=== PATIENT | female | born 1950 | race Caucasian/White ===

== ENCOUNTER → 2020-04-20 08:51 | Outpatient (BNVA) | payer MEDICARE, MEDICAID, SELFPAY | PROVIDERS: PCP Internal Medicine; Referring Provider Internal Medicine; Visit Provider Nurse Practitioner | DX: Z76.89 Persons encountering health services in other specified circumstances (principal) ==

== ENCOUNTER 2020-08-30 10:26 | Outpatient (REF) | payer MEDICARE, MEDICAID, SELFPAY ==
--- NOTE | ~2020-08-30 | US_ITS ---
EXAMINATION: US ABDOMEN COMPLETE CLINICAL INFORMATION: Unspecified abdominal pain. COMPARISON: Ultrasound abdomen 12/31/2017. TECHNIQUE: Real-time imaging of the abdominal viscera. FINDINGS: PANCREAS: Normal. ABDOMINAL AORTA: The proximal, mid, and distal segments are normal in caliber. INFERIOR VENA CAVA: Visualized portions are normal. LIVER: The liver is normal in size. The liver contour is normal. Parenchymal echogenicity is normal. There are 2 cysts measuring 2.2 x 2 x 1.8 cm and the left lobe and 1.8 x 1.4 x 2 cm in the right lobe. There is no intrahepatic biliary duct dilatation seen. GALLBLADDER: The gallbladder is physiologically distended. Multiple mobile gallstones are present. No evidence of gallbladder wall thickening or pericholecystic fluid. COMMON BILE DUCT: Normal in caliber measuring 0.4 cm in diameter. RIGHT KIDNEY: There is a 5 mm cyst in the upper pole. No hydronephrosis or renal calculi. The kidney measures 11.3 cm in maximum dimension. LEFT KIDNEY: Normal. No hydronephrosis. No renal calculi or focal parenchymal lesions. The kidney measures 9.9 cm in maximum dimension. SPLEEN: Normal. The spleen measures 6.7 cm in maximum dimension. FREE FLUID: None. US/US abdomen complete IMPRESSION: Gallstones. Liver and right renal cysts.
== END 2020-08-30 10:27 | disposition home or self-care (01) ==
LOC: HO.US 10:26
PROVIDERS: Visit Provider Internal Medicine
DX: R10.9 Unspecified abdominal pain (principal)
CPT/HCPCS: 76700

== ENCOUNTER 2020-12-06 11:06 | Outpatient (REF) | payer MEDICARE, MEDICAID, SELFPAY ==
--- NOTE | ~2020-12-06 | MM_ITS ---
EXAMINATION: MM SCREENING DIGITAL BREAST TOMOSYNTHESIS, BILATERAL CLINICAL INFORMATION: Screening. Asymptomatic. The lifetime risk of breast cancer based on the Tyrer-Cuzick Model is 3.2%. COMPARISON: Mammography: September 08, 2018 and studies dating back to March 07, 2012 TECHNIQUE: Digital breast tomosynthesis is performed in both the craniocaudal and mediolateral oblique views along with computer-aided detection (CAD). Synthesized 2D images are generated from the tomosynthesis. FINDINGS: There are scattered areas of fibroglandular density (ACR BI-RADS breast composition Category b). There are no significant masses, abnormal calcifications, or other abnormalities. MM/MM tomosynthesis screening BI IMPRESSION: There are no significant changes from prior study. ASSESSMENT: BI-RADS 1: Negative RECOMMENDATION: Routine annual mammography screening. This patient's information was entered into a reminder system with a target due date for their next mammogram.
--- NOTE | ~2020-12-06 | MM_ITS ---
EXAMINATION: BONE DENSITOMETRY CLINICAL INDICATION: Menopause. COMPARISON: None (current study represents initial baseline exam). TECHNIQUE: Using a Sanswire DXA System (software version: 13.1) manufactured by [employer], dual-energy x-ray absorptiometry was performed of the lumbar spine and left hip. The images are of good technical quality. Summary results are attached. FINDINGS: AP SPINE L1-L4: BMD 0.960 g/cm2, Z-score -0.2, T-score -1.8, osteopenia. LEFT FEMUR, NECK: BMD 0.614 g/cm2, Z-score -1.4, T-score -3.1, osteoporosis. LEFT FEMUR, TOTAL: BMD 0.687 g/cm2, Z-score -1.2, T-score -2.5, osteoporosis. IDENTIFIED RISK FACTORS: Menopause, osteoporosis, rheumatoid arthritis, history of fracture (adult), anticonvulsant. HISTORY OF FRACTURE: Pelvis. MEDICATIONS: Calcium, vitamin D. MM/XR DEXA axial skeleton IMPRESSION: 1. DIAGNOSIS: Osteoporosis based on the lowest T-score value of -3.1 in the femoral neck applying World Health Organization criteria. 2. 10-YEAR FRACTURE RISK PREDICTION, FRAX: Major osteoporotic fracture (clinical spine, forearm, hip or shoulder) 21.8%. Hip fracture 7.4%. 3. Treatment Recommendations: NOF guidelines recommend consideration for treatment in postmenopausal women and men age 50 and older presenting with the following: -A hip or vertebral (clinical or morphometric) fracture. -T-score less than or equal to -2.5 at the femoral neck or spine after appropriate evaluation to exclude secondary causes. -Low bone mass at the hip or spine and a 10-year fracture probability by FRAX of greater than or equal to 3% for hip fracture or greater than or equal to 20% for major osteoporotic fracture based on the [place] adapted WHO algorithm. 4. Other Recommendations: All treatment decisions require clinical judgment and consideration of individual patient factors, including patient preferences, comorbidities, previous drug use, risk factors not captured in the FRAX model (e.g. frailty, falls, vitamin D deficiency, increased bone turnover, interval significant decline in bone density) and possible under or overestimation of fracture risk by FRAX. Additional medical evaluation for secondary cause of low bone mineral density may be appropriate. FUTURE SCAN RECOMMENDATION: People with diagnosed cases of osteoporosis or at high risk for fracture should have regular bone mineral density tests. For patients eligible for Medicare, routine testing is allowed once every 2 years. The testing frequency can be increased to one year for patients who have rapidly progressing disease, those who are receiving or discontinuing medical therapy to restore bone mass, or have additional risk factors.
== END 2020-12-06 11:07 | disposition home or self-care (01) ==
LOC: HO.MAMMO 11:06
PROVIDERS: PCP Internal Medicine; Visit Provider Nurse Practitioner Family
DX: Z12.31 Encounter for screening mammogram for malignant neoplasm of breast (principal); Z13.820 Encounter for screening for osteoporosis; M85.80 Other specified disorders of bone density and structure, unspecified site; M06.9 Rheumatoid arthritis, unspecified; Z78.0 Asymptomatic menopausal state; Z87.81 Personal history of (healed) traumatic fracture; Z79.899 Other long term (current) drug therapy
CPT/HCPCS: 77063; 77067; 77080

== ENCOUNTER → 2020-12-22 10:48 | Outpatient (BNVA) | payer MEDICARE, MEDICAID, SELFPAY | PROVIDERS: PCP Internal Medicine; Visit Provider Surgery Vascular Surgery | DX: I83.11 Varicose veins of right lower extremity with inflammation (principal) | CPT/HCPCS: 99212 ==

== ENCOUNTER 2021-01-17 10:47 | Outpatient (REF) | payer MEDICARE, MEDICAID, SELFPAY ==
--- NOTE | ~2021-01-17 | US_ITS ---
EXAMINATION: US VENOUS REFLUX/INSUFFICIENCY CLINICAL INFORMATION: This is a 70 year-old female with right lower extremity varicose veins. COMPARISON: None. TECHNIQUE: Bilateral lower extremity and venous insufficiency ultrasound was performed with velocity measurements. Color flow Doppler imaging was performed. FINDINGS: RIGHT SIDE: GREATER SAPHENOUS VEIN: The right saphenofemoral junction measures 7 mm. There is no reflux The proximal thigh segment measures 7 mm. There is no reflux. The mid thigh segment measures 4 mm. There is no reflux. The above-knee segment measures 3 mm. There is no reflux The at-knee segment measures 2 mm. There is no reflux. The below-knee segment measures 2 mm. There is no reflux. The mid calf segment measures 2 mm. There is no reflux. The ankle segment measures 3 mm. There is no reflux. A nonrefluxing medial duplicated greater saphenous vein branch is noted. LESSER SAPHENOUS VEIN: The saphenofemoral junction measures 3 mm. There is no reflux The mid calf segment measures 2 mm There is no reflux. The distal calf segment measures is 3 mm. There is no reflux. LEFT SIDE: GREATER SAPHENOUS VEIN: The right saphenofemoral junction measures 8 mm There is no reflux. The proximal thigh segment measures 3 mm. There is no reflux. The mid thigh segment is not visualized. The above-knee segment is not visualized. The at-knee segment is not visualized. The below-knee segment measures 2 mm. There is no reflux. The mid calf segment measures 2 mm. The reflux time is 1356 ms. The ankle segment measures 3 mm There is no reflux. A nonrefluxing lateral greater saphenous vein branch is noted. Patent, nonrefluxing are noted in the left mid calf. LESSER SAPHENOUS VEIN: The saphenofemoral junction measures 3 mm. There is no reflux The mid calf segment measures 3 mm There is no reflux. The distal calf segment measures is 3 mm. There is no reflux. DEEP VENOUS SYSTEMS: No deep venous thrombosis is seen bilaterally. There is no deep insufficiency noted of the bilateral deep venous systems. US/US venous duplex LE BI IMPRESSION: 1. There is hemodynamically significant reflux of the left greater saphenous vein. A patent, nonrefluxing superficial varicosity is seen in the mid left calf. 2. The right greater saphenous vein shows no hemodynamically significant reflux. 3. The bilateral lesser saphenous veins show no hemodynamically significant reflux. 4. No deep venous insufficiency is seen bilaterally.
== END 2021-01-17 10:48 | disposition home or self-care (01) ==
LOC: HO.US 10:47
PROVIDERS: PCP Internal Medicine; Visit Provider Surgery Vascular Surgery
DX: I83.893 Varicose veins of bilateral lower extremities with other complications (principal)
CPT/HCPCS: 93970

== ENCOUNTER → 2021-01-19 10:30 | Outpatient (BNVA) | payer MEDICARE, MEDICAID, SELFPAY | PROVIDERS: PCP Internal Medicine; Visit Provider Surgery Vascular Surgery | DX: I83.11 Varicose veins of right lower extremity with inflammation (principal) | CPT/HCPCS: 99212 ==

== ENCOUNTER 2021-03-28 11:45 | Outpatient (REF) | payer MEDICARE, MEDICAID, SELFPAY | END 2021-03-28 11:46 | disposition home or self-care (01) | LOC: HO.LAB 11:45 | PROVIDERS: PCP Internal Medicine; Visit Provider Internal Medicine | DX: Z20.822 Contact with and (suspected) exposure to COVID-19 (principal) | CPT/HCPCS: C9803; U0003; U0005 ==

== ENCOUNTER 2021-06-20 11:44 | Outpatient (REF) | payer MEDICARE, MEDICAID, SELFPAY ==
[2021-06-20 12:14] LABS: MANUAL DIFF FLAG NO
[2021-06-20 12:31] LABS: Basophils Absolute Auto 0.1 X10*3/uL (0.0-0.2); Basophils Percent Auto 0.4 % (0-2); Eosinophils Absolute Auto 0.3 X10*3/uL (0.0-0.4); Hematocrit 41.3 % (37.0-47.0); Hemoglobin 13.2 g/dl (12.0-16.0); Imm Gran Abs Auto 0.05 X10*3/uL (0.00-0.03); Imm Gran Pct Auto 0.3 % (0.0-0.4); Lymphocytes Absolute Auto 3.5 X10*3/uL (1.2-4.9); Lymphocytes Percent Auto 23.8 % (20-40); Mean Corpuscular Hemoglobin 29.1 pg (27.0-33.0); Mean Corpuscular Volume 91.2 fL (80.0-98.0); Monocytes Absolute Auto 1.1 X10*3/uL (0.1-1.2); Monocytes Percent Auto 7.3 % (2-11); Neutrophils Absolute Auto 9.7 x10*3/uL (2.0-8.3); Neutrophils Percent Auto 66.2 % (45-73); Platelet Count 347 X10*3/uL (160-400); Red Blood Count 4.53 X10*6/uL (4.20-5.50); Red Cell Distribution Width 13.2 % (11.0-16.0); White Blood Count 14.6 X10*3/uL (4.8-10.8)
[2021-06-20 13:09] LABS: Alanine Aminotransferase 18 U/L (0-31); Albumin Level 3.7 g/dL (3.5-5.0); Alkaline Phosphatase 95 U/L (39-117); Anion Gap 12 (12-20); Aspartate Amino Transferase 18 U/L (5-31); Bilirubin Total 0.6 mg/dL (0.0-1.0); Blood Urea Nitrogen 17 mg/dL (9-16); Calcium 9.5 mg/dL (8.4-10.2); Carbon Dioxide 26 mmol/L (22-29); Chloride 107 mmol/L (96-108); Cholesterol 186 mg/dL; Estimated Glomerular Filt Rate > 60; Glucose Fasting 91 mg/dL (60-99); HDL Cholesterol 54 mg/dL; LDL Cholesterol Calculated 117 mg/dl; Potassium 4.2 mmol/L (3.3-5.1); Sodium 141 mmol/L (135-145); Total Protein 8.5 g/dL (6.5-8.0); Triglycerides 75 mg/dL
[2021-06-20 13:21] LABS: Thyroid Stimulating Hormone 1.44 uIU/mL (0.32-4.0)
== END 2021-06-20 11:45 | disposition home or self-care (01) ==
LOC: HO.LAB 11:44
PROVIDERS: PCP Internal Medicine; Visit Provider Internal Medicine
DX: Z00.00 Encounter for general adult medical examination without abnormal findings (principal); E11.9 Type 2 diabetes mellitus without complications; E03.9 Hypothyroidism, unspecified
CPT/HCPCS: 36415; 80053; 80061; 84443; 85025

== ENCOUNTER 2022-08-03 11:49 | Outpatient (REF) | payer MEDICARE, MEDICAID, SELFPAY ==
[2022-08-03 12:28] LABS: COVID-19 Test Positive (Negative); IDNOW Serial# 6674DD1D
== END 2022-08-03 11:50 | disposition home or self-care (01) ==
LOC: HO.LAB 11:49
PROVIDERS: Visit Provider Internal Medicine
DX: Z20.822 Contact with and (suspected) exposure to COVID-19 (principal)
CPT/HCPCS: 87635; C9803

== ENCOUNTER 2023-02-28 11:40 | Outpatient (AMB) | payer MEDICARE, MEDICAID, SELFPAY ==
[2023-02-28 11:19] VITALS: BP 130/64; PULSE 83; O2SAT 99; BMI 26.3
--- NOTE | 2023-02-28 11:19 | A.OFFPC_ITS ---
Vital Signs 02/28/23 11:19 Height 5 ft 2 in Weight 144 lb BMI 26.3 BP 130/64 Blood Pressure Location Lt brachial Position Sitting Pulse 83 Pulse Source Pulse Oximeter Temp Source Skin Pulse Oximetry (%) 99 Oxygen Delivery Method Room Air Intake Visit Reasons: R eye cataract surgery-03/08 Intake Note: Patient is here for a Pre-op for R eye cataract surgery scheduled with Dr. Chace Mendoza on 03/08/23 Health And Safety Coordinator Required: No Allergies No Known Allergies [No Known Allergies*] Allergy (Verified 02/28/23 12:03) Medication List - Last Reconciled 02/28/23 by ARBEN Lord acetaminophen ER (Tylenol Arthritis Pain) 650 mg PO Q8H amlodipine 10 mg PO DAILY certolizumab pegol mg subcut diclofenac sodium mg PO dicyclomine 20 mg PO QID gabapentin mg PO tramadol 50 mg PO BID PRN Tobacco use date assessed: 02/28/23 Fall risk assessment: No Falls in past year Last assessed Fall Risk: 02/28/23 HPI R eye cataract surgery-03/08 HPI Details Patient is a 72-year-old female who presents today for preop clearance. Pt of Dr. Valdez. Surgery/date: Right eye cataract 03/08/2023, left eye cataract 03/28/23 Surgeon: Dr. Mendoza Location: [place], [place] Anaesthesia: Local. Patient reports history of general anesthesia in the past that she tolerated well. Patient denies history of perioperative hypothermia or blood clotting disorders. She is not on anticoagulation. Medical history significant for GERD, gallstones, sacroiliac dysfunction, rheumatoid arthritis-followed by Rheumatology, hypertension, venous insufficiency of both lower extremities, sleep apnea-not CPAP. Patient denies shortness of breath or chest pain. PFSH Medical History (Updated 02/28/23 @ 12:28 by ARBEN Lord) Cellulitis Abdominal pain Maye infection COVID-19 Post-menopausal Screening for breast cancer Surgical History (Updated 02/28/23 @ 12:28 by ARBEN Lord) History of eyelid surgery History of esophagogastroduodenoscopy (EGD) History of bladder surgery (02/25/20) Hx of colonoscopy Family History Father No problems noted. Mother Enlarged heart Myocardial infarction Heart problem Maternal Grandmother Breast cancer Social History Household Members: Children and Other Household Members Other:: child, grandchildren Housing: House Alcohol intake: current Alcohol intake frequency: does not drink Patient Tobacco Use Status: Never used Tobacco e-Cigarette/Vaping Use: Never Used Second Hand Smoke Exposure: No service: No Current occupational status: retired Cognitive needs: No Hearing needs: No Vision needs: No Questionnaire PHQ-9 Over the last 2 weeks, how often have you been bothered by any of the following problems? 1. Little interest or pleasure in doing things: not at all 2. Feeling down, depressed, or hopeless: not at all 3. Trouble falling or staying asleep, or sleeping too much: not at all 4. Feeling tired or having little energy: not at all 5. Poor appetite or overeating: not at all 6. Feeling bad about yourself - or that you are a failure or have let yourself or your family down: not at all 7. Trouble concentrating on things, such as reading the newspaper or watching television: not at all 8. Moving or speaking so slowly that other people could have noticed. Or the opposite - being so fidgety or restless that you have been moving around a lot more than usual: not at all 9. Thoughts that you would be better off or of hurting yourself in some way: not at all Total score: 0 Depression Screening Interpretation: Negative Source: Developed by Drs. Rhonda Vera, Pranav Huston and colleagues, with an educational dean from [employer]. Thrive Questionnaire Date Thrive assessed: 08/03/22 AUDIT C Alcohol Use Questionnaire (AUDIT-C) 1. How often do you have a drink containing alcohol?: Never 3. How often do you have six or more drinks on one occasion?: Never Total Score: 0 CARLOS-7 AMB Questionnaire CARLOS-7 Date CARLOS - 7 assessed: 08/03/22 Source: Developed by Drs. Rhonda Vera, Pranav Huston and colleagues, with an educational dean from [employer]. Review of Systems Const Denies body aches, Denies chills, Denies fever(s), Denies headache(s) and Denies weight loss Eyes Reports blurry vision ENT Denies dizziness, Denies otalgia, Denies headache(s), Denies nasal discharge, Denies sinus pain and Denies sore throat Card Denies chest pain, Denies edema, Denies lightheadedness and Denies dyspnea Resp Denies dyspnea and Denies wheezing GI Denies abdominal pain Denies dysuria Musc Denies myalgias Skin/Breast Denies rash Neuro Denies dizziness and Denies headache(s) Aller/Immun Denies wheezing Physical exam (Primary Care) Vital Signs: Last Vital Signs Pulse 83 02/28/23 11:19 BP 130/64 02/28/23 11:19 Pulse Ox 99 02/28/23 11:19 Oxygen Delivery Method Room Air 02/28/23 11:19 BMI result Body Mass Index 26.3 Tobacco/Smoking Status: Tobacco use Status Tobacco use date assessed 02/28/23 02/28/23 11:21 Patient Tobacco Use Status Never used Tobacco 02/28/23 11:21 e-Cigarette/Vaping Use Never Used 02/28/23 11:21 PHQ-9: PHQ-9 Score PHQ-9: Total score 0 02/28/23 12:09 Depression Screening Interpretation: Negative Thrive Assessment: Date of Thrive Assessment Date Thrive assessed 08/03/22 02/28/23 11:21 Const General: cooperative and no acute distress Orientation/consciousness: patient oriented x3 HENMT Head: Yes normocephalic and Yes atraumatic Ears: TM's normal bilaterally Face and sinus: Yes sinuses nontender Mouth: oropharynx normal and moist mucous membranes Throat: Yes posterior oropharynx normal Eyes General: appearance normal, both eyes and all related structures Pupils: Equal, round and reactive pupils present EOM: EOMs intact bilaterally Neck Neck: Yes normal visual inspection, Yes full ROM and Yes no lymphadenopathy Thyroid: Thyroid normal Resp Effort & Inspection: normal respiratory effort and able to speak in complete sentences Auscultation: clear to auscultation bilaterally, no crackles, no rales, no rhonchi and no wheezes Cardio Rate: regular rate Rhythm: regular rhythm Heart sounds: S1 normal heart sound present, S2 normal heart sound present and no murmurs GI Palpation (GI): Soft to palpation, not firm, nontender, no guarding and not rigid Auscultation: normal bowel sounds Skin General skin exam: no rashes or lesions noted Neuro General: patient oriented x3 Cranial nerves: Yes Equal, round and reactive pupils present Gait exam (Neuro): Normal gait present Extrem General: Yes full ROM and No edema Results Reviewed Results Reviewed: Laboratory Tests 02/28/23 12:43 WBC 13.1 H RBC 4.68 Hgb 13.7 Hct 42.4 MCV 90.6 MCH 29.3 MCHC 32.3 RDW 12.7 Plt Count 325 MPV 10.6 Absolute Nucleated RBC 0.000 Nucleated RBC % (auto) 0.0 PT 11.6 INR 1.0 Sodium 142 Potassium 3.3 D Chloride 106 Carbon Dioxide 26 Anion Gap 13 BUN 14 Creatinine 0.90 Estim Creat Clear Calc Not Reportable Estimated GFR > 60 Random Glucose 128 H Calcium 9.7 TSH 1.13 Assessment and Plan Assessment & Plan (1) Preoperative clearance: Code(s): Z01.818 - Encounter for other preprocedural examination Plan: METs > 4; RCRI Class 1 cardiovascular risk 0.4% for a low risk surgery (recent blood work 02/2023) Regarding preop clearance, the patient is at acceptable risk for proposed surgery. Reviewed with the patient that no surgery is completely free of risk and that this examination is to assist the surgeon in reviewing informed consent. Postop care including DVT prophylaxis per surgeon. Patient is cleared for surgery. 02/28/2023 EKG with no acute findings. Ordering Physician: Mayuri Taylor Date of Service: 02/28/23 Procedure(s): ECG 12 lead EKG Accession Number(s): [id number] cc: Mayuri Taylor~ Test Reason : preop Blood Pressure : / mmHG Vent. Rate : 068 BPM Atrial Rate : 068 BPM P-R Int : 136 ms QRS Dur : 094 ms QT Int : 398 ms P-R-T Axes : 022 005 010 degrees QTc Int : 423 ms Normal sinus rhythm Normal ECG No previous ECGs available Referred By: Mayuri Taylor Electronically Signed By:RHONDA CORNELIUS (2) Cataract: Code(s): H26.9 - Unspecified cataract Plan: Surgery/date: Right eye cataract 03/08/2023, left eye cataract 03/28/23 Surgeon: Dr. Mendoza Location: [place], [place] Anaesthesia: Local. Orders: Orders TSH reflex Free T4 02/28/23 Z - Encounter for other preprocedural examination Basic Metabolic Panel 02/28/23 - Encounter for other preprocedural examination Complete Blood Count no Diff 02/28/23 Z. - Encounter for other preprocedural examination Prothrombin Time INR 02/28/23. - Encounter for other preprocedural examination ECG 12 lead EKG 02/28/23 - Encounter for other preprocedural examination Coding Level of Care Code Est Pt Level 3 (80875) Diagnoses Preoperative clearance Z Cataract H26.9 Additional Codes PHQ-9 - 33753 - PHQ-9 Billing: ([id number])
== END 2023-02-28 12:20 | disposition home or self-care (01) ==
PROVIDERS: PCP Internal Medicine; Visit Provider Nurse Practitioner Family
DX: H26.9 Unspecified cataract (principal); Z01.818 Encounter for other preprocedural examination; M06.9 Rheumatoid arthritis, unspecified
CPT/HCPCS: 99213

== ENCOUNTER 2023-02-28 12:29 | Outpatient (REF) | payer MEDICARE, MEDICAID, SELFPAY ==
--- NOTE | 2023-02-28 12:46 | ECG_ITS ---
Test Reason : preop Blood Pressure : / mmHG Vent. Rate : 068 BPM Atrial Rate : 068 BPM P-R Int : 136 ms QRS Dur : 094 ms QT Int : 398 ms P-R-T Axes : 022 005 010 degrees QTc Int : 423 ms Normal sinus rhythm Normal ECG No previous ECGs available Referred By: Mayuri Taylor Electronically Signed By:RHONDA CORNELIUS
[2023-02-28 13:59] LABS: Hematocrit 42.4 % (37.0-47.0); Hemoglobin 13.7 g/dl (12.0-16.0); Mean Corpuscular HGB Conc 32.3 g/dl (31.0-35.0); Mean Corpuscular Hemoglobin 29.3 pg (27.0-33.0); Mean Corpuscular Volume 90.6 fL (80.0-98.0); Mean Platelet Volume 10.6 fL (9.4-12.3); Platelet Count 325 X10*3/uL (160-400); Red Blood Count 4.68 X10*6/uL (4.20-5.50); Red Cell Distribution Width 12.7 % (11.0-16.0); White Blood Count 13.1 X10*3/uL (4.8-10.8)
[2023-02-28 14:06] LABS: Prothrombin Time 11.6 SEC (11.1-13.3)
[2023-02-28 14:31] LABS: Anion Gap 13 (12-20); Blood Urea Nitrogen 14 mg/dL (9-16); Calcium 9.7 mg/dL (8.4-10.2); Carbon Dioxide 26 mmol/L (22-29); Chloride 106 mmol/L (96-108); Estimated Glomerular Filt Rate > 60; Glucose Random 128 mg/dL (60-115); Potassium 3.3 mmol/L (3.3-5.1); Sodium 142 mmol/L (135-145)
[2023-02-28 14:49] LABS: TSH reflex Free T4 1.13 uIU/mL (0.32-4.0)
== END 2023-02-28 12:30 | disposition home or self-care (01) ==
LOC: HO.LAB 12:29
PROVIDERS: PCP Internal Medicine; Visit Provider Nurse Practitioner Family
DX: Z01.818 Encounter for other preprocedural examination (principal); H26.9 Unspecified cataract; G47.30 Sleep apnea, unspecified; I10 Essential (primary) hypertension; M06.9 Rheumatoid arthritis, unspecified
CPT/HCPCS: 36415; 80048; 84443; 85027; 85610; 93005

== ENCOUNTER 2023-06-07 10:30 | Outpatient (AMB) | payer MEDICARE, MEDICAID, SELFPAY ==
--- NOTE | 2023-06-07 10:33 | MHC.PC.OV ---
Vital Signs 06/07/23 10:36 Height 5 ft 2 in Weight 142 lb BMI 26.0 BP 130/68 Blood Pressure Location Lt brachial Position Sitting Intake Visit Reasons: 3mth f/u Intake Note: Patient is here to follow up on HTN, GERD, RA,. 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 Accompanied by: Self / Same As Patient Allergies No Known Allergies [No Known Allergies*] Allergy (Verified 06/07/23 10:35) Medication List - Last Reconciled 06/07/23 by Elier Valdez MD amlodipine 10 mg PO DAILY certolizumab pegol mg subcut diclofenac sodium mg PO dicyclomine 20 mg PO QID gabapentin mg PO tramadol 50 mg PO BID PRN Tobacco use date assessed: 06/07/23 Fall risk assessment: No Falls in past year Last assessed Fall Risk: 06/07/23 Dental Screening Dental Screen Date: 06/07/23 Did you have a dental visit in the last 12 months?: No Did you have a dental problem in the last 6 months where you did not have access to dental care?: No Was dental information given to patient?: Patient has dentist HPI 3mth f/u HPI Details HTN on Rx; doing well PFSH Medical History (Updated 02/28/23 @ 12:28 by ARBEN Lord) Cellulitis Abdominal pain Maye infection COVID-19 Post-menopausal Screening for breast cancer Surgical History History of eyelid surgery History of esophagogastroduodenoscopy (EGD) History of bladder surgery (02/25/20) Hx of colonoscopy Family History Father No problems noted. Mother Enlarged heart Myocardial infarction Heart problem Maternal Grandmother Breast cancer Social History Household Members: Children and Other Household Members Other:: child, grandchildren Housing: House Alcohol intake: current Alcohol intake frequency: does not drink Patient Tobacco Use Status: Never used Tobacco e-Cigarette/Vaping Use: Never Used Second Hand Smoke Exposure: No service: No Current occupational status: retired Cognitive needs: No Hearing needs: No Vision needs: No Questionnaire PHQ-9 Over the last 2 weeks, how often have you been bothered by any of the following problems? 1. Little interest or pleasure in doing things: not at all 2. Feeling down, depressed, or hopeless: not at all 3. Trouble falling or staying asleep, or sleeping too much: not at all 4. Feeling tired or having little energy: not at all 5. Poor appetite or overeating: not at all 6. Feeling bad about yourself - or that you are a failure or have let yourself or your family down: not at all 7. Trouble concentrating on things, such as reading the newspaper or watching television: not at all 8. Moving or speaking so slowly that other people could have noticed. Or the opposite - being so fidgety or restless that you have been moving around a lot more than usual: not at all 9. Thoughts that you would be better off or of hurting yourself in some way: not at all Total score: 0 Depression Screening Interpretation: Negative Depression Screening Done: Yes Source: Developed by Drs. Pedro Vera, Kika Martell, Pranav Rascon and colleagues, with an educational dean from [employer]. Thrive Questionnaire Date Thrive assessed: 06/07/23 I am a: Patient What is your living situation today?: I have a steady place to live Within the past 12 months, did the food you bought not last and you didn't have the money to get more?: Never true Within the past 12 months, did you worry whether your food would run out before you got money to buy more?: Never true Do you have trouble paying for medicines?: No Do you have trouble getting transportation to medical appointments?: No Do you have trouble paying your heating and electricity bill?: No Do you have trouble taking care of your child, family member or friend?: No Do you have trouble with day-to-day activities such as bathing, preparing meals, shopping, managing finances, etc.?: No Are you currently unemployed and looking for a job?: No Are you interested in more education?: No Currently or been in a relationship where the following occur: no concerns reported AUDIT C Alcohol Use Questionnaire (AUDIT-C) 1. How often do you have a drink containing alcohol?: Never Total Score: 0 CARLOS-7 AMB Questionnaire CARLOS-7 Date CARLOS - 7 assessed: 06/07/23 Feeling nervous, anxious, or on edge: 0 = Not at all Not being able to stop or control worryin = Not at all Worrying too much about different things: 0 = Not at all Trouble relaxin = Not at all Being so restless that it is hard to sit still: 0 = Not at all Becoming easily annoyed or irritable: 0 = Not at all Feeling afraid as if something awful might happen: 0 = Not at all Total CARLOS-7 score (0-4 normal; 5-9 mild; 10-14 moderate; 15-21 severe): 0 Source: Developed by Drs. Pedro Vera, Kika Martell, Pranav Rascon and colleagues, with an educational dean from [employer]. Review of Systems Const Denies chills, Denies headache(s) and Denies weight loss ENT Denies headache(s) Card Denies chest pain, Denies syncope, Denies irregular heart rhythm and Denies dyspnea Resp Denies chest congestion, Denies cough and Denies dyspnea GI Denies abdominal pain, Denies change in stool character, Denies nausea and Denies vomiting Musc Denies deformity and Denies joint swelling Neuro Denies syncope and Denies headache(s) Physical exam (Primary Care) Vital Signs: Last Vital Signs BP 130/68 06/07/23 10:36 BMI result Body Mass Index 26.0 Tobacco/Smoking Status: Tobacco use Status Tobacco use date assessed 06/07/23 06/07/23 10:41 Patient Tobacco Use Status Never used Tobacco 06/07/23 10:41 e-Cigarette/Vaping Use Never Used 06/07/23 10:41 PHQ-9: PHQ-9 Score PHQ-9: Total score 0 06/07/23 10:47 Depression Screening Interpretation: Negative Thrive Assessment: Date of Thrive Assessment Date Thrive assessed 06/07/23 06/07/23 10:41 Currently or been in a relationship where the following occur: no concerns reported Const General: cooperative, comfortable, no acute distress and alert Neck Neck: Yes no lymphadenopathy Thyroid: Thyroid normal Resp Effort & Inspection: normal respiratory effort Auscultation: clear to auscultation bilaterally Percussion: percussion normal Cardio Jugular venous distension: no JVD Palpation: normal PMI Rate: regular rate Rhythm: regular rhythm Heart sounds: S1 normal heart sound present and S2 normal heart sound present GI Inspection: Yes normal to inspection Palpation (GI): No hepatosplenomegaly present Skin General skin exam: no rashes or lesions noted Extrem General: Yes no clubbing, cyanosis or edema Office Procedures Flu Questionnaire Does the patient have a severe egg allergy?: No Does the patient have severe life threatening allergies?: No Does the patient have a fever or illness today?: No Has the patient ever had Guillain-[place] Syndrome?: No Has the patient ever had any past reaction to a flu shot?: No Immunizations flu vacc [id number] 6mos up(PF) 60 mcg(15 mcgx4)/0.5 mL IM syringe Performing Provider: Elier Valdez MD [facility] Administered by: Xochitl Wilkinson on 06/07/23 10:47 Dose Route Admin Location Dispensed Lot Number Expiration Date [employer] 0.5 mL IM Left Deltoid 0.5 mL [id number] 12/01/23 97284-213-83 meevl VIS Given Date VIS Provided VIS Publication Date 06/07/23 Single Vaccine 21 Eligibility Eligibility Date Funding Source Not [facility] Eligible 06/07/23 Private Assessment and Plan Assessment & Plan (1) Hypertension: Code(s): I10 - Essential (primary) hypertension Qualifiers: Hypertension type: unspecified Qualified Code(s): I10 - Essential (primary) hypertension Plan: stable; same rx Orders: Orders Thyroid Stimulating Hormone Today E03.9 - Hypothyroidism, unspecified Influenza [id number] Immunization Today Z23 - Encounter for immunization Lipid Panel Today E78.5 - Hyperlipidemia, unspecified Complete Blood Count Auto Diff Today D64.9 - Anemia, unspecified Comprehensive [place]. Panel Fast Today N28.9 - Disorder of kidney and ureter, unspecified Coding Level of Care Code Est Pt Level 3 (02237) Diagnoses Hypertension, unspecified type I10 Hypertension type: unspecified
[2023-06-07 10:36] VITALS: BP 130/68; BMI 26.0
== END 2023-06-07 10:57 | disposition home or self-care (01) ==
PROVIDERS: PCP Internal Medicine; Visit Provider Internal Medicine
DX: I10 Essential (primary) hypertension (principal); Z23 Encounter for immunization
CPT/HCPCS: 90471; 90686; 99213

== ENCOUNTER 2023-06-13 11:27 | Outpatient (REF) | payer MEDICARE, MEDICAID, SELFPAY ==
[2023-06-13 11:44] LABS: MANUAL DIFF FLAG NO
[2023-06-13 12:00] LABS: Basophils Absolute Auto 0.1 X10*3/uL (0.0-0.2); Basophils Percent Auto 0.5 % (0-2); Eosinophils Absolute Auto 0.3 X10*3/uL (0.0-0.4); Eosinophils Percent Auto 2.5 % (0-4); Hematocrit 39.5 % (37.0-47.0); Hemoglobin 12.7 g/dl (12.0-16.0); Imm Gran Abs Auto 0.05 X10*3/uL (0.00-0.03); Imm Gran Pct Auto 0.4 % (0.0-0.4); Lymphocytes Absolute Auto 2.9 X10*3/uL (1.2-4.9); Lymphocytes Percent Auto 22.8 % (20-40); Mean Corpuscular HGB Conc 32.2 g/dl (31.0-35.0); Mean Corpuscular Hemoglobin 29.6 pg (27.0-33.0); Mean Corpuscular Volume 92.1 fL (80.0-98.0); Mean Platelet Volume 9.5 fL (9.4-12.3); Monocytes Absolute Auto 1.1 X10*3/uL (0.1-1.2); Monocytes Percent Auto 8.7 % (2-11); Neutrophils Absolute Auto 8.2 x10*3/uL (2.0-8.3); Neutrophils Percent Auto 65.1 % (45-73); Platelet Count 301 X10*3/uL (160-400); Red Blood Count 4.29 X10*6/uL (4.20-5.50); Red Cell Distribution Width 13.8 % (11.0-16.0); White Blood Count 12.6 X10*3/uL (4.8-10.8)
[2023-06-13 12:50] LABS: Alanine Aminotransferase 14 U/L (0-31); Albumin Level 3.5 g/dL (3.5-5.0); Alkaline Phosphatase 91 U/L (39-117); Anion Gap 12 (12-20); Aspartate Amino Transferase 18 U/L (5-31); Bilirubin Total 0.5 mg/dL (0.0-1.0); Blood Urea Nitrogen 17 mg/dL (9-16); Calcium 9.3 mg/dL (8.4-10.2); Carbon Dioxide 29 mmol/L (22-29); Chloride 107 mmol/L (96-108); Cholesterol 191 mg/dL (<200); Estimated Glomerular Filt Rate > 60; Glucose Fasting 85 mg/dL (60-99); HDL Cholesterol 56 mg/dL (>40); LDL Cholesterol Calculated 120 mg/dL (<100); Potassium 3.8 mmol/L (3.3-5.1); Sodium 144 mmol/L (135-145); Total Protein 8.3 g/dL (6.5-8.0); Triglycerides 75 mg/dL (<150)
[2023-06-13 13:08] LABS: Thyroid Stimulating Hormone 1.42 uIU/mL (0.32-4.0)
== END 2023-06-13 11:28 | disposition home or self-care (01) ==
LOC: HO.LAB 11:27
PROVIDERS: PCP Internal Medicine; Visit Provider Internal Medicine
DX: E03.9 Hypothyroidism, unspecified (principal); E78.5 Hyperlipidemia, unspecified; N28.9 Disorder of kidney and ureter, unspecified; D64.9 Anemia, unspecified
CPT/HCPCS: 36415; 80053; 80061; 84443; 85025

== ENCOUNTER 2023-09-06 09:11 | Outpatient (AMB) | payer MEDICARE, MEDICAID, SELFPAY ==
[2023-09-06 09:22] VITALS: BP 140/78; PULSE 75; O2SAT 98; BMI 25.8
--- NOTE | 2023-09-06 09:22 | A.OFFPC_ITS ---
Vital Signs 09/06/23 09:22 Height 5 ft 2 in Weight 141 lb BMI 25.8 BP 140/78 H Blood Pressure Location Lt brachial Position Sitting Pulse 75 Pulse Source Pulse Oximeter Pulse Oximetry (%) 98 Oxygen Delivery Method Room Air Intake Visit Reasons: Annual Exam Delivery Of Shopping News Required: No Receptionist/Telephone Operator: Not Required per policy Accompanied by: Self / Same As Patient Allergies No Known Allergies [No Known Allergies*] Allergy (Verified 09/06/23 09:23) Medication List - Last Reconciled 09/09/23 by Elier Valdez MD amlodipine 10 mg PO DAILY certolizumab pegol mg subcut diclofenac sodium mg PO dicyclomine 20 mg PO QID gabapentin mg PO tramadol 50 mg PO BID PRN Tobacco use date assessed: 06/07/23 Fall risk assessment: No Falls in past year Last assessed Fall Risk: 09/06/23 Dental Screening Dental Screen Date: 06/07/23 HPI Annual Exam HPI Details HTN on Rx; doing well; compliant [facility] Medical History (Updated 02/28/23 @ 12:28 by ARBEN Lord) Cellulitis Abdominal pain Maye infection COVID-19 Post-menopausal Screening for breast cancer Surgical History History of eyelid surgery History of esophagogastroduodenoscopy (EGD) History of bladder surgery (02/25/20) Hx of colonoscopy Family History Father No problems noted. Mother Enlarged heart Myocardial infarction Heart problem Maternal Grandmother Breast cancer Social History Household Members: Children and Other Household Members Other:: child, grandchildren Housing: House Alcohol intake: current Alcohol intake frequency: does not drink Patient Tobacco Use Status: Never used Tobacco e-Cigarette/Vaping Use: Never Used Second Hand Smoke Exposure: No service: No Current occupational status: retired Cognitive needs: No Hearing needs: No Vision needs: No Questionnaire Thrive Questionnaire Date Thrive assessed: 06/07/23 CARLOS-7 AMB Questionnaire CARLOS-7 Date CARLOS - 7 assessed: 06/07/23 Source: Developed by Drs. Pedro Vera, Kika B.W. Pranav Martell and colleagues, with an educational dean from [employer]. Review of Systems Const Denies chills, Denies fatigue, Denies headache(s) and Denies weight loss Eyes Denies change in vision, Denies diplopia and Denies eye pain ENT Denies vertigo, Denies dizziness, Denies headache(s) and Denies nasal discharge Card Denies chest pain, Denies rapid heart rate and Denies dyspnea on exertion Resp Denies chest congestion, Denies cough, Denies pain with cough and Denies dyspnea on exertion GI Denies abdominal pain, Denies hematochezia and Denies change in bowel habits Musc Denies myalgias, Denies arthralgias and Denies joint swelling Skin/Breast Denies lesions and Denies unusual bruising Neuro Denies vertigo, Denies dizziness, Denies headache(s) and Denies focal weakness Endo Denies fatigue Physical exam (Primary Care) Vital Signs: Last Vital Signs Pulse 75 09/06/23 09:22 BP 140/78 H 09/06/23 09:22 Pulse Ox 98 09/06/23 09:22 Oxygen Delivery Method Room Air 09/06/23 09:22 BMI result Body Mass Index 25.8 Tobacco/Smoking Status: Tobacco use Status Tobacco use date assessed 06/07/23 09/06/23 09:23 Patient Tobacco Use Status Never used Tobacco 09/06/23 09:23 e-Cigarette/Vaping Use Never Used 09/06/23 09:23 Thrive Assessment: Date of Thrive Assessment Date Thrive assessed 06/07/23 09/06/23 09:23 Const General: cooperative, healthy appearing and no acute distress Orientation/consciousness: oriented to person, oriented to place and oriented to time [facility] Head: Yes normal to inspection, Yes normocephalic and Yes atraumatic Mouth: Normal oral and palatal mucosa present and tongue normal Throat: Yes posterior oropharynx normal and Yes uvula midline Eyes General: appearance normal, both eyes and all related structures Neck Neck: Yes normal visual inspection, Yes full ROM and Yes no lymphadenopathy Thyroid: Thyroid normal Carotids: normal carotid upstroke Chest Chest palpation & inspection: normal inspection of the chest Resp Effort & Inspection: normal respiratory effort and able to speak in complete sentences Auscultation: clear to auscultation bilaterally Cardio Jugular venous distension: no JVD Palpation: normal PMI Rate: regular rate Rhythm: regular rhythm Heart sounds: S1 normal heart sound present and S2 normal heart sound present GI Inspection: Yes normal to inspection Palpation (GI): Soft to palpation and No hepatosplenomegaly present Auscultation: normal bowel sounds General: Yes no CVA tenderness Back/Spine/Pelvis Back: no CVA tenderness Skin General skin exam: no rashes or lesions noted Neuro General: oriented to person, oriented to place and oriented to time Extrem General: Yes normal to inspection and Yes full ROM Assessment and Plan Assessment & Plan (1) Physical exam: Code(s): Z00.00 - Encounter for general adult medical examination without abnormal findings Plan: stable; do labs (2) Hypertension: Code(s): I10 - Essential (primary) hypertension Qualifiers: Hypertension type: unspecified Qualified Code(s): I10 - Essential (primary) hypertension Plan: stable; same rx Orders: Orders Complete Blood Count Auto Diff Today Z13.0 - Encounter for screening for diseases of the blood and blood-forming organs and certain disorders involving the immune mechanism Comprehensive [place]. Panel Fast Today Z13.9 - Encounter for screening, unspecified Lipid Panel Today Z13.220 - Encounter for screening for lipoid disorders Thyroid Stimulating Hormone Today Z13.29 - Encounter for screening for other suspected endocrine disorder Coding Level of Care Code Est Pt Prev Care >65y(49252) Diagnoses Physical exam Z00.00 Hypertension, unspecified type I10 Hypertension type: unspecified
== END 2023-09-06 09:54 | disposition home or self-care (01) ==
PROVIDERS: PCP Internal Medicine; Visit Provider Internal Medicine
DX: Z00.00 Encounter for general adult medical examination without abnormal findings (principal); I10 Essential (primary) hypertension
CPT/HCPCS: 99397

== ENCOUNTER 2023-09-13 07:50 | Outpatient (REF) | payer MEDICARE, SELFPAY ==
[2023-09-13 08:05] LABS: MANUAL DIFF FLAG NO
[2023-09-13 08:24] LABS: Basophils Absolute Auto 0.1 X10*3/uL (0.0-0.2); Basophils Percent Auto 0.6 % (0-2); Eosinophils Absolute Auto 0.6 X10*3/uL (0.0-0.4); Eosinophils Percent Auto 5.9 % (0-4); Hemoglobin 12.4 g/dl (12.0-16.0); Imm Gran Abs Auto 0.03 X10*3/uL (0.00-0.03); Imm Gran Pct Auto 0.3 % (0.0-0.4); Lymphocytes Absolute Auto 3.3 X10*3/uL (1.2-4.9); Lymphocytes Percent Auto 31.2 % (20-40); Mean Corpuscular HGB Conc 32.6 g/dl (31.0-35.0); Mean Corpuscular Hemoglobin 29.5 pg (27.0-33.0); Mean Corpuscular Volume 90.3 fL (80.0-98.0); Mean Platelet Volume 9.3 fL (9.4-12.3); Monocytes Percent Auto 9.9 % (2-11); Neutrophils Absolute Auto 5.5 x10*3/uL (2.0-8.3); Neutrophils Percent Auto 52.1 % (45-73); Platelet Count 335 X10*3/uL (160-400); Red Blood Count 4.21 X10*6/uL (4.20-5.50); Red Cell Distribution Width 12.8 % (11.0-16.0); White Blood Count 10.5 X10*3/uL (4.8-10.8)
[2023-09-13 09:35] LABS: Alanine Aminotransferase 16 U/L (0-31); Albumin Level 3.3 g/dL (3.5-5.0); Alkaline Phosphatase 80 U/L (39-117); Anion Gap 11 (12-20); Aspartate Amino Transferase 21 U/L (5-31); Bilirubin Total 0.5 mg/dL (0.0-1.0); Blood Urea Nitrogen 17 mg/dL (9-16); Calcium 9.3 mg/dL (8.4-10.2); Carbon Dioxide 28 mmol/L (22-29); Chloride 107 mmol/L (96-108); Cholesterol 174 mg/dL (<200); Estimated Glomerular Filt Rate > 60; Glucose Fasting 83 mg/dL (60-99); HDL Cholesterol 45 mg/dL (>40); LDL Cholesterol Calculated 112 mg/dL (<100); Potassium 3.6 mmol/L (3.3-5.1); Sodium 142 mmol/L (135-145); Total Protein 8.1 g/dL (6.5-8.0); Triglycerides 85 mg/dL (<150)
[2023-09-13 10:11] LABS: Thyroid Stimulating Hormone 2.16 uIU/mL (0.32-4.0)
== END 2023-09-13 07:51 | disposition home or self-care (01) ==
LOC: HO.LAB 07:50
PROVIDERS: PCP Internal Medicine; Visit Provider Internal Medicine
DX: Z13.220 Encounter for screening for lipoid disorders (principal); Z13.6 Encounter for screening for cardiovascular disorders; Z13.29 Encounter for screening for other suspected endocrine disorder; Z13.0 Encounter for screening for diseases of the blood and blood-forming organs and certain disorders involving the immune mechanism
CPT/HCPCS: 36415; 80053; 80061; 84443; 85025

== ENCOUNTER 2023-12-06 10:44 | Outpatient (AMB) | payer MEDICARE, MEDICAID, SELFPAY ==
[2023-12-06 10:45] VITALS: BP 132/64; PULSE 88; O2SAT 97; BMI 26.2
--- NOTE | 2023-12-06 10:45 | MHC.PC.OV ---
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: Not Required per policy Accompanied by: Self / Same As Patient Allergies No Known Allergies [No Known Allergies*] Allergy (Verified 12/06/23 10:46) Medication List - Last Reconciled 12/06/23 by Elier Valdez MD amlodipine 10 mg PO DAILY certolizumab pegol mg subcut diclofenac sodium mg PO dicyclomine 20 mg PO QID gabapentin mg PO tramadol 50 mg PO BID PRN Tobacco use date assessed: 06/07/23 Fall risk assessment: No Falls in past year Last assessed Fall Risk: 12/06/23 Dental Screening Dental Screen Date: 06/07/23 HPI 3mth f/u HPI Details hypertension on rx; doing well and compliant [facility] Medical History (Updated 02/28/23 @ 12:28 by ARBEN Lord) Cellulitis Abdominal pain Maye infection COVID-19 Post-menopausal Screening for breast cancer Surgical History History of eyelid surgery History of esophagogastroduodenoscopy (EGD) History of bladder surgery (02/25/20) Hx of colonoscopy Family History Father No problems noted. Mother Enlarged heart Myocardial infarction Heart problem Maternal Grandmother Breast cancer Social History Household Members: Children and Other Household Members Other:: child, grandchildren Housing: House Alcohol intake: current Alcohol intake frequency: does not drink Patient Tobacco Use Status: Never used Tobacco e-Cigarette/Vaping Use: Never Used Second Hand Smoke Exposure: No service: No Current occupational status: retired Cognitive needs: No Hearing needs: No Vision needs: No Questionnaire Thrive Questionnaire Date Thrive assessed: 06/07/23 CARLOS-7 AMB Questionnaire CARLOS-7 Date CARLOS - 7 assessed: 06/07/23 Source: Developed by Drs. Pedro Vera, Kika Martell, Pranav Rascon and colleagues, with an educational dean from [employer]. Review of Systems Const Denies chills, Denies headache(s) and Denies weight loss ENT Denies headache(s) Card Denies chest pain, Denies syncope, Denies irregular heart rhythm and Denies dyspnea Resp Denies chest congestion, Denies cough and Denies dyspnea GI Denies abdominal pain, Denies change in stool character, Denies nausea and Denies vomiting Musc Denies deformity and Denies joint swelling Neuro Denies syncope and Denies headache(s) Physical exam (Primary Care) Vital Signs: Last Vital Signs Pulse 88 12/06/23 10:45 BP 132/64 12/06/23 10:45 Pulse Ox 97 12/06/23 10:45 Oxygen Delivery Method Room Air 12/06/23 10:45 BMI result Body Mass Index 26.2 Tobacco/Smoking Status: Tobacco use Status Tobacco use date assessed 06/07/23 12/06/23 10:46 Patient Tobacco Use Status Never used Tobacco 12/06/23 10:46 e-Cigarette/Vaping Use Never Used 12/06/23 10:46 Thrive Assessment: Date of Thrive Assessment Date Thrive assessed 06/07/23 12/06/23 10:46 Const General: cooperative, comfortable, no acute distress and alert Neck Neck: Yes no lymphadenopathy Thyroid: Thyroid normal Resp Effort & Inspection: normal respiratory effort Auscultation: clear to auscultation bilaterally Percussion: percussion normal Cardio Jugular venous distension: no JVD Palpation: normal PMI Rate: regular rate Rhythm: regular rhythm Heart sounds: S1 normal heart sound present and S2 normal heart sound present GI Inspection: Yes normal to inspection Palpation (GI): No hepatosplenomegaly present Skin General skin exam: no rashes or lesions noted Extrem General: Yes no clubbing, cyanosis or edema Assessment and Plan Assessment & Plan (1) Hypertension: Code(s): I10 - Essential (primary) hypertension Qualifiers: Hypertension type: unspecified Qualified Code(s): I10 - Essential (primary) hypertension Plan: stable; same rx Coding Level of Care Code Est Pt Level 3 (88681) Diagnoses Hypertension, unspecified type I10 Hypertension type: unspecified
== END 2023-12-06 11:00 | disposition home or self-care (01) ==
PROVIDERS: PCP Internal Medicine; Visit Provider Internal Medicine
DX: I10 Essential (primary) hypertension (principal)
CPT/HCPCS: 99213

== ENCOUNTER 2024-09-08 10:52 | Outpatient (AMB) | payer MEDICARE, MEDICAID, SELFPAY ==
--- NOTE | 2024-09-08 10:58 | MHC.PC.OV ---
Vital Signs 09/08/24 10:59 Height 5 ft 2 in Weight 126 lb 6 oz BMI 23.1 BP 100/66 Blood Pressure Location Lt brachial Position Sitting Pulse 70 Pulse Source Pulse Oximeter Temp 96.9 F Temp Source Temporal Artery Scan Pulse Oximetry (%) 97 Oxygen Delivery Method Room Air Intake Visit Reasons: NO DR Valdez Intake Note: Patient is here today for NO from Dr Valdez Real Estate Rep Required: No Die Attaching Machine Tender: Not Required per policy Accompanied by: Self / Same As Patient Allergies No Known Allergies [No Known Allergies*] Allergy (Verified 09/08/24 11:19) Medication List - Last Reconciled 09/08/24 by Lyndsey Arguello PA-C amlodipine 10 mg PO DAILY certolizumab pegol mg subcut diclofenac sodium 75 mg PO BID dicyclomine 20 mg PO QID gabapentin mg PO tramadol 50 mg PO BID PRN Tobacco use date assessed: 09/08/24 Fall risk assessment: No Falls in past year Last assessed Fall Risk: 09/08/24 Dental Screening Dental Screen Date: 09/08/24 Did you have a dental visit in the last 12 months?: Yes Did you have a dental problem in the last 6 months where you did not have access to dental care?: No Was dental information given to patient?: Patient has dentist HPI NO DR Valdez HPI Details 73-year-old female with past medical history of GERD, rheumatoid arthritis, hypertension, sleep apnea and varicose veins of bilateral lower extremities last seen 12/[address] Valdez coming in for transfer of care.? In review of the notes, patient is followed by the arthritis treatment Center last seen 07/2024 advised to continue on current medication regimen, ordered for blood work and advised to follow up in 6 months. The patient is a 73-year-old female presenting with multiple chronic conditions. She was previously diagnosed with rheumatoid arthritis, controlled with medication under specialist care. Her hypertension is managed with amlodipine. GERD symptoms occur occasionally, with episodes triggered by specific foods, causing choking sensations and excess mucus. Constipation is partially managed with dietary measures. Despite a diagnosis of sleep apnea, she has not pursued CPAP therapy. The patient has a history of gallbladder stones but is asymptomatic following dietary modifications. She experiences leg itching and cramping due to venous insufficiency, managed with topical treatments. A back lipoma causes discomfort, indicating a need for surgical consultation. Additionally, she is due for a colonoscopy based on a past finding of colonic polyps. mammogram: last done 2020 - and declined DEXA: last done 2020 - colonoscopy: last done 2016 tubular adenoma f/u 5 years [facility] Medical History Cellulitis Abdominal pain Maye infection COVID-19 Post-menopausal Screening for breast cancer Surgical History History of eyelid surgery History of esophagogastroduodenoscopy (EGD) History of bladder surgery (02/25/20) Hx of colonoscopy Family History Father No problems noted. Mother Enlarged heart Myocardial infarction Heart problem Maternal Grandmother Breast cancer Social History Household Members: Children and Other Household Members Other:: child, grandchildren Housing: House Alcohol intake: current Alcohol intake frequency: does not drink Patient Tobacco Use Status: Never used Tobacco e-Cigarette/Vaping Use: Never Used Second Hand Smoke Exposure: No service: No Current occupational status: retired Cognitive needs: No Hearing needs: No Vision needs: No Questionnaire PHQ-9 Over the last 2 weeks, how often have you been bothered by any of the following problems? 1. Little interest or pleasure in doing things: not at all 2. Feeling down, depressed, or hopeless: not at all 3. Trouble falling or staying asleep, or sleeping too much: not at all 4. Feeling tired or having little energy: not at all 5. Poor appetite or overeating: not at all 6. Feeling bad about yourself - or that you are a failure or have let yourself or your family down: not at all 7. Trouble concentrating on things, such as reading the newspaper or watching television: not at all 8. Moving or speaking so slowly that other people could have noticed. Or the opposite - being so fidgety or restless that you have been moving around a lot more than usual: not at all 9. Thoughts that you would be better off or of hurting yourself in some way: not at all Total score: 0 Depression Screening Interpretation: Negative Depression Screening Done: Yes Source: Developed by Drs. Pedro Vera, Kika Martell, Pranav Rascon and colleagues, with an educational dean from [employer]. Thrive Questionnaire Date Thrive assessed: 09/08/24 I am a: Patient What is your living situation today?: I have a steady place to live Within the past 12 months, did the food you bought not last and you didn't have the money to get more?: Never true Within the past 12 months, did you worry whether your food would run out before you got money to buy more?: Never true Do you have trouble paying for medicines?: No Do you have trouble getting transportation to medical appointments?: No Do you have trouble paying your heating and electricity bill?: No Do you have trouble taking care of your child, family member or friend?: No Do you have trouble with day-to-day activities such as bathing, preparing meals, shopping, managing finances, etc.?: No Are you currently unemployed and looking for a job?: No Are you interested in more education?: No Please select the resources that you would like help with: None Currently or been in a relationship where the following occur: No concerns reported THRIVE Score: 0 AUDIT C Alcohol Use Questionnaire (AUDIT-C) 1. How often do you have a drink containing alcohol?: Never Total Score: 0 CARLOS-7 AMB Questionnaire CARLOS-7 Date CARLOS - 7 assessed: 09/08/24 Feeling nervous, anxious, or on edge: 0 = Not at all Not being able to stop or control worryin = Not at all Worrying too much about different things: 0 = Not at all Trouble relaxin = Not at all Being so restless that it is hard to sit still: 0 = Not at all Becoming easily annoyed or irritable: 0 = Not at all Feeling afraid as if something awful might happen: 0 = Not at all Total CARLOS-7 score (0-4 normal; 5-9 mild; 10-14 moderate; 15-21 severe): 0 Source: Developed by Kika Golden Kurt Kroenke and colleagues, with an educational dean from [employer]. CARLOS-7 Assessment Billing CARLOS-7 Assessment Tool: CARLOS-7 Assessment 53044 Review of Systems Const Denies body aches, Denies chills, Denies fever(s), Denies headache(s) and Denies poor appetite Eyes Reports no additional complaints ENT Denies dysphagia, Denies dizziness, Denies headache(s) and Denies odynophagia Card Denies chest pain, Denies syncope, Denies edema, Denies irregular heart rhythm, Denies lightheadedness and Denies dyspnea Resp Denies cough and Denies dyspnea GI Denies abdominal pain, Reports constipation, Denies dysphagia, Denies diarrhea, Denies nausea, Denies odynophagia and Denies vomiting Reports no additional complaints Musc Reports no additional complaints and Denies abnormal gait Skin/Breast Reports system reviewed and no additional complaints, except as documented Neuro Denies abnormal gait, Denies dizziness, Denies syncope and Denies headache(s) Psych Reports no additional complaints Physical exam (Primary Care) Vital Signs: Last Vital Signs Temp 96.9 F 09/08/24 10:59 Pulse 70 09/08/24 10:59 BP 100/66 09/08/24 10:59 Pulse Ox 97 09/08/24 10:59 Oxygen Delivery Method Room Air 09/08/24 10:59 BMI result Body Mass Index 23.1 Tobacco/Smoking Status: Tobacco use Status Tobacco use date assessed 09/08/24 09/08/24 11:04 Patient Tobacco Use Status Never used Tobacco 09/08/24 11:04 e-Cigarette/Vaping Use Never Used 09/08/24 11:04 PHQ-9: PHQ-9 Score PHQ-9: Total score 0 09/08/24 11:04 Depression Screening Interpretation: Negative Thrive Assessment: Date of Thrive Assessment Date Thrive assessed 09/08/24 09/08/24 11:04 Currently or been in a relationship where the following occur: No concerns reported Const General: cooperative, healthy appearing, comfortable and no acute distress Orientation/consciousness: patient oriented x3 HENMT Head: Yes normocephalic Ears: hearing grossly normal bilaterally General nose exam: Normal external nose present Eyes General: appearance normal, both eyes and all related structures Conjunctivae: conjunctivae normal Neck Neck: Yes full ROM and Yes no lymphadenopathy Resp Effort & Inspection: normal respiratory effort Auscultation: clear to auscultation bilaterally, no crackles, no rales, no rhonchi and no wheezes Cardio Rate: regular rate Rhythm: regular rhythm Skin General skin exam: no rashes or lesions noted Full body images: 1. Soft, nontender mass with smooth borders Neuro General: patient oriented x3 Gait exam (Neuro): Normal gait present Extrem General: Yes normal to inspection, Yes full ROM and No edema Psych Affect: normal affect Attitude: cooperative Insight: Good insight present (Psych) Judgement: Good judgement present (Psych) Coding Level of Care Code Est Pt Level 4 (01746) Diagnoses GERD (gastroesophageal reflux disease) K21.9 Gallstones K80.20 Rheumatoid arthritis M06.9 Rheumatoid arthritis location: unspecified site Hypertension, unspecified type I10 Hypertension type: unspecified Venous insufficiency of both lower extremities I87.2 Sleep apnea G47.30 Soft tissue mass M79.89 Additional Codes CARLOS-7 Assessment Billing - CARLOS-7 Assessment Tool: CARLOS-7 Assessment 59956 ([id number]) Assessment & Plan Assessment & Plan (1) GERD (gastroesophageal reflux disease): Code(s): K21.9 - Gastro-esophageal reflux disease without esophagitis Category: Medical Plan: Avoid trigger foods such as citrus, tomato products, soda, caffeine, spicy foods and other foods that may be irritating to your stomach. Avoid laying flat 3-4 hours after eating and elevate the head of the bed 30 degrees to prevent acid from moving into the esophagus. (2) Gallstones: Code(s): K80.20 - Calculus of gallbladder without cholecystitis without obstruction Category: Medical Plan: Patient asymptomatic at this time. Continue to monitor. (3) Rheumatoid arthritis: Code(s): M06.9 - Rheumatoid arthritis, unspecified Category: Medical Qualifiers: Rheumatoid arthritis location: unspecified site Plan: Patient currently following with the arthritis treatment Center on gabapentin and certolizumab pegol. (4) Hypertension: Code(s): I10 - Essential (primary) hypertension Category: Medical Qualifiers: Hypertension type: unspecified Qualified Code(s): I10 - Essential (primary) hypertension Plan: Continue on current blood pressure medication. Avoid salt intake and encourage healthy diet and regular exercise. Currently on amlodipine (5) Venous insufficiency of both lower extremities: Comment: 2020 venous insufficiency testing negative Code(s): I87.2 - Venous insufficiency (chronic) (peripheral) Category: Medical Plan: Last seen by vascular surgery 2020 venous insufficiency testing was negative and legs had improve with treatment of arthritis advised to continue with conservative measurement including compression, elevation and exercise. Advised to follow up as needed at that time. (6) Sleep apnea: Comment: mild - does not use CPAP Code(s): G47.30 - Sleep apnea, unspecified Category: Medical Plan: Mild sleep apnea did not pursue CPAP therapy due to insurance restraints (7) Soft tissue mass: Code(s): M79.89 - Other specified soft tissue disorders Category: Medical Plan: Patient having large soft tissue mass that causes significant discomfort on the back of her neck. She states she had someone working this problem off but is unsure of which practice. Referral was placed to her General surgery today for further evaluation and possible removal. Plan Medications were reviewed, particularly focusing on the management of constipation influenced by tramadol. GERD treatment options were explored, recommending a trial of daily medications. Humidifier use was considered to alleviate oral dryness associated with sleep apnea, but financial constraints limit CPAP therapy. Patient displayed excellent progress with weight management via dietary modifications, positively affecting gallbladder stone management. She was instructed to continue moisturizing her legs with Aquaphor to alleviate itching related to venous issues. Surgical evaluation for the back lipoma was recommended, alongside scheduling a colonoscopy to reassess previous polyp findings. This note was constructed using voice recognition software. While every effort has been made to ensure accuracy and story teller, still areas may have been included sometimes these areas may affect the content or meeting of the given symptoms. Total time spent caring for the patient today was thirty minutes. This includes time spent before the visit reviewing the chart, time spent during the visit, and time spent after the visit and documentation. Patient was informed and verbally consented to the use of an ambient scribe for clinic note documentation during this visit. Orders: Orders XR DEXA axial skeleton Today Z78.0 - Asymptomatic menopausal state Comprehensive Met. Panel Today I10 - Essential (primary) hypertension, Z00.00 - Encounter for general adult medical examination without abnormal findings Lipid Panel Today E78.00 - Pure hypercholesterolemia, unspecified Vitamin D 25-OH Total Today Z00.00 - Encounter for general adult medical examination without abnormal findings UA CC w/rflx Micro + Cult Today R35.89 - Other polyuria Vitamin B12 and Folate Today Z00.00 - Encounter for general adult medical examination without abnormal findings TSH reflex Free T4 Today Z00.00 - Encounter for general adult medical examination without abnormal findings Free T4 (Free Thyroxine) Today Z00.00 - Encounter for general adult medical examination without abnormal findings Referrals Gastroenterology Referral Z12.11 - Encounter for screening for malignant neoplasm of colon General Surgery Referral M79.89 - Other specified soft tissue disorders Medications: Refilled amlodipine 10 mg PO DAILY 90 tabs 3RF Discontinued dicyclomine Discontinued Reason: Patient no longer taking 20 mg PO QID 30 tabs 3RF
[2024-09-08 10:59] VITALS: BP 100/66; PULSE 70; TEMP 36.1; O2SAT 97; BMI 23.1
== END 2024-09-08 11:45 | disposition home or self-care (01) ==
LOC: HO.HMCH 10:52
PROVIDERS: PCP Internal Medicine
DX: K21.9 Gastro-esophageal reflux disease without esophagitis (principal); K80.20 Calculus of gallbladder without cholecystitis without obstruction; M06.9 Rheumatoid arthritis, unspecified; I10 Essential (primary) hypertension; I87.2 Venous insufficiency (chronic) (peripheral); G47.30 Sleep apnea, unspecified; M79.89 Other specified soft tissue disorders

== ENCOUNTER → 2024-09-08 10:52 | Outpatient (BNVA) | payer MEDICARE, MEDICAID, SELFPAY | PROVIDERS: PCP Internal Medicine | DX: K21.9 Gastro-esophageal reflux disease without esophagitis (principal); M06.9 Rheumatoid arthritis, unspecified; I10 Essential (primary) hypertension; G47.30 Sleep apnea, unspecified; I83.93 Asymptomatic varicose veins of bilateral lower extremities; K80.20 Calculus of gallbladder without cholecystitis without obstruction; M79.89 Other specified soft tissue disorders; Z78.0 Asymptomatic menopausal state | CPT/HCPCS: 96127; 99212 ==

== ENCOUNTER 2024-09-16 08:44 | Outpatient (AMB) | payer MEDICARE, MEDICAID, SELFPAY ==
--- NOTE | 2024-09-16 09:14 | A.OFFVIS_ITS ---
Vital Signs 09/16/24 09:15 Height 5 ft 2 in Weight 122 lb BMI 22.3 BP 142/76 H Blood Pressure Location Lt brachial Position Sitting Intake Visit Reasons: large soft tissue mass on the back of the neck Intake Note: I'm here for this bump on my neck. c/o increase in size - has had for 2-3 years - pain if she moves her head certain ways Erection Shop Supervisor Required: No Allergies No Known Allergies [No Known Allergies*] Allergy (Verified 09/16/24 09:17) Medication List - Last Reconciled 09/16/24 by Oscar Odom, RN amlodipine 10 mg PO DAILY certolizumab pegol mg subcut diclofenac sodium 75 mg PO BID gabapentin mg PO tramadol 50 mg PO BID PRN HPI Comments Details: Patient presents with her daughter. She has a large right upper back/posterior neck lipoma. It was markedly increased in size and become more symptomatic. He would like to have removed. She has no such lesions elsewhere. She has had this for many years time. Chart was reviewed and patient evaluated [facility] Medical History Cellulitis Abdominal pain Maye infection COVID-19 Post-menopausal Screening for breast cancer Surgical History History of eyelid surgery History of esophagogastroduodenoscopy (EGD) History of bladder surgery (02/25/20) Hx of colonoscopy Family History Father No problems noted. Mother Enlarged heart Myocardial infarction Heart problem Maternal Grandmother Breast cancer Social History Household Members: Children and Other Household Members Other:: child, grandchildren Housing: House Alcohol intake: current Alcohol intake frequency: does not drink Patient Tobacco Use Status: Never used Tobacco e-Cigarette/Vaping Use: Never Used Second Hand Smoke Exposure: No service: No Current occupational status: retired Cognitive needs: No Hearing needs: No Vision needs: No Physical Exam Vital Signs: Last Vital Signs BP 142/76 H 09/16/24 09:15 BMI result Body Mass Index 22.3 Neck Other: Patient has roughly 10 x 15 cm right upper for back/lower neck lipoma. 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 All questions answered. Arrangements will be made for this on a day which is convenient for her. Coding Level of Care Code New Pt Level 5 (46063) Diagnoses Lipomatosis gigantea E88.2
[2024-09-16 09:15] VITALS: BP 142/76; BMI 22.3
== END 2024-09-16 09:38 | disposition home or self-care (01) ==
PROVIDERS: PCP Internal Medicine; Visit Provider Surgery
DX: E88.2 Lipomatosis, not elsewhere classified (principal)
CPT/HCPCS: 99204

== ENCOUNTER 2024-09-16 08:44 | Outpatient (REF) | payer MEDICARE, MEDICAID, SELFPAY ==
[2024-09-16 11:13] LABS: Appearance Urine Clear; Color Urine Yellow; Glucose Urine UA Negative (Negative); Leukocyte Esterase Urine Large (3+) (Negative); Nitrite Urine Negative (Negative); PH 6.5 (5.0-9.0); UMIC TRIGGER UACC YES; Urine Blood Trace (Negative); Urine Ketones Negative (Negative); Urine Protein Trace mg/dL (Neg-Trace)
[2024-09-16 11:20] LABS: Bacteria Urine None Seen (None Seen); Hyaline Casts Urine 0-2 /LPF (0-2); RBC Urine 0-2 /HPF (0-2); Squamous Epithelial Cell Urine 0-2 /HPF (0-2); UACC Culture Trigger YES; WBC Urine 21-50 /HPF (0-5)
[2024-09-16 11:34] LABS: Alanine Aminotransferase 18 U/L (0-31); Albumin Level 3.6 g/dL (3.5-5.0); Alkaline Phosphatase 100 U/L (39-117); Anion Gap 9 (12-20); Aspartate Amino Transferase 24 U/L (5-31); Bilirubin Total 0.6 mg/dL (0.0-1.0); Blood Urea Nitrogen 19 mg/dL (9-16); Calcium 9.5 mg/dL (8.4-10.2); Carbon Dioxide 28 mmol/L (22-29); Chloride 108 mmol/L (96-108); Cholesterol 198 mg/dL (<200); Estimated Glomerular Filt Rate > 60; Glucose Random 83 mg/dL (60-115); HDL Cholesterol 58 mg/dL (>40); LDL Cholesterol Calculated 121 mg/dL (<100); Potassium 3.8 mmol/L (3.3-5.1); Sodium 141 mmol/L (135-145); Total Protein 8.3 g/dL (6.5-8.0); Triglycerides 95 mg/dL (<150)
[2024-09-16 11:37] LABS: Free T4 (Free Thyroxine) 1.14 ng/dL (0.71-1.85); TSH reflex Free T4 2.01 uIU/mL (0.32-4.0); Vitamin D 25-OH Total 25.4 ng/mL (>30)
[2024-09-16 11:42] LABS: Folate 14.3 ng/mL (> or = 4.0); Vitamin B12 356 pg/mL (200-900)
== END 2024-09-16 08:45 | disposition home or self-care (01) ==
LOC: HO.LAB 08:44
PROVIDERS: Visit Provider Surgery
DX: Z00.00 Encounter for general adult medical examination without abnormal findings (principal); E88.2 Lipomatosis, not elsewhere classified; I10 Essential (primary) hypertension; E78.00 Pure hypercholesterolemia, unspecified
CPT/HCPCS: 36415; 80053; 80061; 81001; 81003; 82306; 82607; 82746; 84439; 84443; 87086; 99202

== ENCOUNTER 2024-09-30 09:27 | Outpatient (AMB) | payer MEDICARE, MEDICAID, SELFPAY ==
--- NOTE | 2024-09-30 09:34 | A.OFFVIS_ITS ---
Vital Signs 3 09/30/24 09:40 Height 5 ft 2 in Weight 126 lb BMI 23.0 BP 141/67 H Blood Pressure Location Lt brachial Position Sitting Pulse 76 Intake Visit Reasons: large soft tissue mass on the back of the neck Intake Note: Patient is seen in office to discuss surgery, regarding a large mass of the back of the neck. Pt c/o: onset 2 plus yrs, increase in size, painful with certain movements, here to discuss excision * Dr Bowles's pt * Pattern Chart Writer Required: No Accompanied by: Family/Other Allergies No Known Allergies [No Known Allergies*] Allergy (Verified 09/30/24 09:40) Medication List - Last Reconciled 09/30/24 by Adi Pickard MD amlodipine 10 mg PO DAILY certolizumab pegol mg subcut cholecalciferol (vitamin D3) 25 mcg PO DAILY diclofenac sodium 75 mg PO BID gabapentin mg PO nitrofurantoin monohyd/m-cryst 100 mg 100 mg PO Q12H 5 days tramadol 50 mg PO BID PRN HPI Comments Details: 73-year-old female patient returning to the office for re-evaluation of a lipoma of the posterior neck. This has been present for many years and has gradually increasing in size. She reports some discomfort especially when bending her neck. She denies any bleeding or discharge from the site. She denies any previous surgery in this location. She is requesting excision of this very large,. PFSH Medical History Cellulitis Abdominal pain Maye infection COVID-19 Post-menopausal Screening for breast cancer Surgical History History of eyelid surgery History of esophagogastroduodenoscopy (EGD) History of bladder surgery (02/25/20) Hx of colonoscopy Family History Father No problems noted. Mother Enlarged heart Myocardial infarction Heart problem Maternal Grandmother Breast cancer Social History Household Members: Children and Other Household Members Other:: child, grandchildren Housing: House Alcohol intake: current Alcohol intake frequency: does not drink Patient Tobacco Use Status: Never used Tobacco e-Cigarette/Vaping Use: Never Used Second Hand Smoke Exposure: No service: No Current occupational status: retired Cognitive needs: No Hearing needs: No Vision needs: No Review of Systems Const All systems reviewed & are unremarkable except as noted in HPI and below Physical Exam Const General: cooperative and no acute distress Nutritional Appearance: well nourished Orientation/consciousness: patient oriented x3 Limitations: no limitations HEENT Head: Yes normocephalic and Yes atraumatic Ears: hearing grossly normal bilaterally Neck Other: A least 10 cm round soft tissue mass located in the upper midline spine extending to just below the neck. No skin changes are appreciated. The mass is mobile within the subcutaneous tissue at his most consistent with a lipoma. Resp Effort & Inspection: normal respiratory effort, no audible wheezes, no cough and no respiratory distress Cardio Jugular venous distension: no JVD GI Inspection: Yes normal to inspection Skin Other: Warm, dry, no rash Neuro General: patient oriented x3 Extrem General: Yes no clubbing, cyanosis or edema Assessment & Plan Assessment & Plan (1) Lipoma of back: Code(s): D17.1 - Benign lipomatous neoplasm of skin and subcutaneous tissue of trunk Category: Medical Plan 73-year-old female patient presenting with a gradually enlarging soft tissue mass in the posterior neck found on examination to have an approximately 10 cm soft tissue mass most consistent with a lipoma. I recommended an excision of this lesion as a short-stay surgery with anesthesia and after discussion of the procedure, risks, and alternatives, she consents to the surgery. Coding Level of Care Code Est Pt Level 3 (75016) Diagnoses Lipoma of back D17.1
[2024-09-30 09:40] VITALS: BP 141/67; PULSE 76; BMI 23.0
== END 2024-09-30 10:06 | disposition home or self-care (01) ==
LOC: HO.HGS 09:27
PROVIDERS: Visit Provider Surgery
DX: D17.1 Benign lipomatous neoplasm of skin and subcutaneous tissue of trunk (principal)
CPT/HCPCS: 99213

== ENCOUNTER → 2024-09-30 09:27 | Outpatient (BNVA) | payer MEDICARE, MEDICAID, SELFPAY | PROVIDERS: Visit Provider Surgery | DX: D17.1 Benign lipomatous neoplasm of skin and subcutaneous tissue of trunk (principal) | CPT/HCPCS: 99212 ==

== ENCOUNTER 2024-11-05 11:05 | Outpatient (REF) | payer MEDICARE, MEDICAID, SELFPAY ==
--- NOTE | ~2024-11-05 | MM_ITS ---
EXAMINATION: DXA BONE DENSITY AXIAL HISTORY: Z78.0 - Asymptomatic menopausal state TECHNIQUE: [employer] Dual energy absorptiometry (DEXA) of the lumbar spine, total left hip, and femoral neck was performed. COMPARISON: Comparison is made with the prior examination dated 12/06/2020. FINDINGS: The bone mineral density of the lumbar spine is 0.952, corresponding to a T-score of -1.8, and a Z-score of -0.1. This is indicative of osteopenia. This represents a BMD change of 1.6% compared to the prior exam. This is not statistically significant. The bone mineral density of the left total hip is 0.617, corresponding to a T-score of -3.1, and a Z-score of -1.5. This is indicative of osteoporosis. This represents a BMD change of -10.2% compared to the prior exam. This is statistically significant. The bone mineral density of the left femoral neck is 0.552, corresponding to a T-score of -3.5, and a Z-score of -1.6. This is indicative of osteoporosis. This represents a BMD change of -10.1% compared to the prior exam. MM/XR DEXA axial skeleton IMPRESSION: Based on bone mineral density, and according to World Health Organization (WHO) criteria, the diagnosis is consistent with osteoporosis. All bone density values are in grams per centimeter squared (g/cm2). Statistically, 68% of repeat scans fall within 1 SD (+/- 0.010 g/cm2 for AP spine L1-L4) and 1 SD (+/- 0.012 g/cm2 for femur total) FRAX is a trademark of the [employer]'s [facility] [employer], a World Health Organization (WHO) Collaborating Center. Electronically signed by: Pedro Hall MD 11/05/2024 03:11 PM EDT
--- NOTE | ~2024-11-05 | MM_ITS ---
EXAMINATION: MM SCREENING DIGITAL BREAST TOMOSYNTHESIS, BILATERAL CLINICAL INFORMATION: Screening. Asymptomatic. COMPARISON: Mammography: Comparison is made with available priors TECHNIQUE: Digital breast mammography with tomosynthesis is performed in both the craniocaudal and mediolateral oblique views along with computer-aided detection (CAD). FINDINGS: The breasts are heterogeneously dense, which may obscure small masses (ACR BI-RADS breast composition Category c). There are no significant masses, abnormal calcifications, or other abnormalities. MM/MM tomosynthesis screening BI IMPRESSION: No mammographic evidence of malignancy. ASSESSMENT: BI-RADS BI-RADS 1 - Negative RECOMMENDATION: Routine annual mammography screening. 1 year F/U This examination should not preclude the clinical evaluation of a suspicious palpable abnormality. This patient's information was entered into a reminder system with a target due date for their next mammogram. Electronically signed by: Sasha Varags DO 11/08/2024 08:17 PM EDT
== END 2024-11-05 11:06 | disposition home or self-care (01) ==
LOC: HO.MAMMO 11:05
DX: Z12.31 Encounter for screening mammogram for malignant neoplasm of breast (principal); Z13.820 Encounter for screening for osteoporosis; Z78.0 Asymptomatic menopausal state
CPT/HCPCS: 77063; 77067; 77080

== ENCOUNTER → 2024-11-05 11:30 | Outpatient (BNV) | payer MEDICARE, MEDICAID, SELFPAY | PROVIDERS: Visit Provider Radiology Diagnostic Radiology | DX: E28.39 Other primary ovarian failure (principal) | CPT/HCPCS: 77080 ==

== ENCOUNTER 2024-11-09 08:01 | Day surgery (SDC) | payer MEDICARE, MEDICAID, SELFPAY ==
[2024-11-05 09:50] VITALS: BMI 23.0
--- NOTE | 2024-11-06 08:36 | HO.ANESPROP2 ---
Documented by User: Manuela Chanel NP 11/06/24 08:38 HPI - Anesthesia Eval Consult details Narrative: 73yo F for Excision Lipoma poseterior Neck PMFSH Active Problems Active Problems: All Active Problems Lipoma of back (Acute) Lipomatosis gigantea (Acute) Soft tissue mass (Acute) Cataract (Acute) Preoperative clearance (Acute) Sleep apnea (Acute) Encounter for annual wellness exam in Medicare patient (Acute) Venous insufficiency of both lower extremities (Acute) Physical exam (Acute) Varicose veins of right lower extremity with inflammation (Acute) Adult general medical exam (Acute) Hypertension (Acute) Rheumatoid arthritis (Acute) Post-menopausal (Acute) Screening for breast cancer (Acute) Sacroiliac dysfunction (Acute) Gallstones (Acute) GERD (gastroesophageal reflux disease) (Acute) Past Medical History Medical History (Updated 11/06/24 @ 13:48 by Lyndsey Arguello PA-C) Sacroiliac dysfunction Rheumatoid arthritis GERD (gastroesophageal reflux disease) HTN (hypertension) Sleep apnea Family History Family History Father No problems noted. Mother Enlarged heart Myocardial infarction Heart problem Maternal Grandmother Breast cancer Surgical History Surgical History History of eyelid surgery History of esophagogastroduodenoscopy (EGD) History of bladder surgery (02/25/20) Hx of colonoscopy Social History Social History Household Members: Children and Other Household Members Other:: child, grandchildren Housing: House Do you presently have visiting nurse or other home services: No Alcohol intake: current Alcohol intake frequency: does not drink Patient Tobacco Use Status: Never used Tobacco e-Cigarette/Vaping Use: Never Used Second Hand Smoke Exposure: No Use of substances other than those prescribed or required for medical reasons: No Have you been hit, kicked, punched, or otherwise hurt by someone within the past year? If so, by whom?: No Are you DNR?: No Advance Directives: No Advance Directives Information Provided: Yes Advance Directives on File: No Patient : No : No Poor oral hygiene: No service: No Current occupational status: retired Cognitive needs: No Hearing needs: No Vision needs: No Meds Allergies Allergy/AdvReac Type Severity Reaction Status Date / Time No Known Allergies Allergy Verified 09/30/24 09:40 [No Known Allergies*] Home Medications ?Medication ?Instructions ?Recorded ?Confirmed ?Last Taken ?Type certolizumab pegol 400 mg/2 mL mg subcut 09/30/20 09/30/24 Unknown History (200 mg/mL x2) subcutaneous syringe kit gabapentin 100 mg capsule 100 mg PO DAILY 09/30/20 11/09/24 11/08/24 History tramadol 50 mg tablet 50 mg PO BID PRN Pain 10/20/20 11/05/24 Unknown History diclofenac sodium 75 mg 75 mg PO BID 09/08/24 11/05/24 Unknown History tablet,delayed release Exam Height,Weight and Vital Signs: Height 5 ft 2 in Weight 57.153 kg Pertinent Lab Results Pertinent Lab Results: Laboratory Tests 09/13/23 09/16/24 08:00 10:00 WBC 10.5 Hgb 12.4 Hct 38.0 Plt Count 335 Sodium 141 Potassium 3.8 Chloride 108 Carbon Dioxide 28 BUN 19 H Creatinine 0.78 Narrative Narrative: EKG 2022 Vent. Rate : 068 BPM Atrial Rate : 068 BPM P-R Int : 136 ms QRS Dur : 094 ms QT Int : 398 ms P-R-T Axes : 022 005 010 degrees QTc Int : 423 ms Normal sinus rhythm Normal ECG No previous ECGs available Assessment and Plan Assessment Anesthesia Assessment: Chart Reviewed Documented by User: Jose Alejandro Naranjo MD 11/09/24 08:45 [facility] Past Medical History Medical History (Updated 11/06/24 @ 13:48 by Lyndsey Arguello PA-C) Sacroiliac dysfunction Rheumatoid arthritis GERD (gastroesophageal reflux disease) HTN (hypertension) Sleep apnea Family History Family History Father No problems noted. Mother Enlarged heart Myocardial infarction Heart problem Maternal Grandmother Breast cancer Surgical History Surgical History History of eyelid surgery History of esophagogastroduodenoscopy (EGD) History of bladder surgery (02/25/20) Hx of colonoscopy Social History Social History Household Members: Children and Other Household Members Other:: child, grandchildren Housing: House Do you presently have visiting nurse or other home services: No Alcohol intake: current Alcohol intake frequency: does not drink Patient Tobacco Use Status: Never used Tobacco e-Cigarette/Vaping Use: Never Used Second Hand Smoke Exposure: No Use of substances other than those prescribed or required for medical reasons: No Have you been hit, kicked, punched, or otherwise hurt by someone within the past year? If so, by whom?: No Are you DNR?: No Advance Directives: No Advance Directives Information Provided: Yes Advance Directives on File: No Patient : No : No Poor oral hygiene: No service: No Current occupational status: retired Cognitive needs: No Hearing needs: No Vision needs: No Meds Allergies Allergy/AdvReac Type Severity Reaction Status Date / Time No Known Allergies Allergy Verified 09/30/24 09:40 [No Known Allergies*] Home Medications ?Medication ?Instructions ?Recorded ?Confirmed ?Last Taken ?Type certolizumab pegol 400 mg/2 mL mg subcut 09/30/20 09/30/24 Unknown History (200 mg/mL x2) subcutaneous syringe kit gabapentin 100 mg capsule 100 mg PO DAILY 09/30/20 11/09/24 11/08/24 History tramadol 50 mg tablet 50 mg PO BID PRN Pain 10/20/20 11/05/24 Unknown History diclofenac sodium 75 mg 75 mg PO BID 09/08/24 11/05/24 Unknown History tablet,delayed release Exam Airway Mallampati Class: III TM Dist: <=3cm Neck ROM: Full Denture: Upper and Lower Partial: Upper and Lower Loose/Missing/Broken Teeth: No Heart: RRR Lungs: CTA B/L Assessment and Plan Assessment Anesthesia Assessment: Anesthesia Plan Discussed Final Anesthetic Review ASA Class: III Patient Risk: Intermediate Procedure Risk: Low Anesthetic Plan Anesthetic Plan: GA Disposition: Standard PACU
[2024-11-09 08:29] VITALS: BP 136/67; PULSE 61; RESP 16; TEMP 36.1; O2SAT 95
[2024-11-09 08:30] VITALS: BMI 23.5
[2024-11-09] MEDS: Lactated Ringers 1,000 ML 100 ML IVCONT (08:37)
--- NOTE | 2024-11-09 10:20 | P.HPSUR_ITS ---
Pre-Procedural Eval Section A - 24 Hr Update-Section A only Date of Service: 11/09/24 The patient is an INPATIENT: No Changes since office visit: Yes Patient answered all questions; No Cold of Flu in the past 2 weeks, No New Medical Problems and No Changes in Medication The patient has been examined within 24 hours of the surgical procedure. The History & Physical has been completed within 30 days and I have reviewed it.: No Section B - Complete if H&P > 30 days Chief Complaint: Benign lipomatous neoplasm of skin and subcutaneou Details of Present Illness: No change in symptoms, lipoma posterior neck Relevant Family History (Specify if Yes): No Relevant Social History: None Present Medications: see Short Stay Collaborative assessment Medical History: No relevant PMH History of Previous Operations: No relevant previous surgery Allergies: Allergies Allergy/AdvReac Type Severity Reaction Status Date / Time No Known Allergies Allergy Verified 09/30/24 09:40 [No Known Allergies*] Review of Systems Sugical H&P ROS: Negative: Constitution, Cardiovascular, Respiratory, Neurological, Allergic/Immunologic, Gastrointestinal, Genitourinary, Musculoske letal, Integumentary and Eyes/Ears/Nose/Throat Exam Surgical H&P Exam: Normal: HEENT, Normal: Heart, Normal: Lungs, Normal: Extremities, Normal: Abdomen, Normal: Skin and Normal: Neurological Plan Diagnosis/Plan: Unchanged I have reviewed the history and physical and performed a pertinent physical examination on my patient. No changes have occurred unless specified. Time Spent With Patient Time: Total time managing care of this patient today ____ minutes.
--- NOTE | 2024-11-09 11:17 | P.OP_ITS ---
Operative Note Operative Note Date of Service: 11/09/24 Narrative: Preoperative diagnosis: Lipoma posterior neck Postoperative diagnosis: Same Procedure: Excision of lipoma posterior neck Surgeon: Adi Pickard MD Interactive Media Marketing Director: MARIBEL Hunt Anesthesia: General ET Indications for procedure: 73-year-old female patient presenting with a slowly enlarging soft tissue mass in the posterior neck measuring approximately 5 cm in diameter Operative findings: 5 cm round posterior neck lipoma Specimen: Lipoma posterior neck Estimated blood loss: Less than 2 mL Complications: None Procedure details: Patient was brought to the OR placed in a supine position. After administering general endotracheal anesthesia the patient was placed in a prone position. The lipoma is located in the posterior neck. The posterior neck was prepped with Betadine and draped in a sterile fashion. A surgical time-out was called the consent confirmed. Patient received preoperative antibiotics and Venodyne boots were in place. Local anesthesia was then infiltrated transversely across the central portion of the lipoma. The incision was carried out through subcutaneous tissue up to the lipoma. Combination of blunt and sharp dissection was then used to dissect the lipoma from the surrounding subcutaneous tissue. The lipoma extended down to the muscle fascia and was excised off the muscle fascia using electrocautery. Hemostasis was assured at all times using electrocautery. The lesion was passed off the table and sent to pathology for further examination. Deep subcutaneous tissue was then reapproximated using interrupted 3-0 Polysorb sutures. Dermis was reapproximated using interrupted 3-0 Polysorb sutures. Skin was closed using a running subcuticular 4-0 Polysorb suture. Steri-Strips, 4 x 4 gauze and Tegaderm were then applied. The patient tolerated the procedure well. Sponge, instrument, and needle counts reported as correct. The patient was transferred to PACU in stable condition.
[2024-11-09 11:30] VITALS: BP 142/70; PULSE 65; RESP 16; TEMP 36.6; O2SAT 97
[2024-11-09 11:35] VITALS: BP 134/64; PULSE 64; RESP 16; O2SAT 97
[2024-11-09 11:40] VITALS: BP 138/57; PULSE 61; RESP 17; O2SAT 96
[2024-11-09] MEDS: Acetaminophen 1,000 MG/100 ML PIGGYBACK 400 MG IV (11:41)
[2024-11-09 11:45] VITALS: BP 145/60; PULSE 64; RESP 13; O2SAT 96
[2024-11-09 12:00] VITALS: BP 145/66; PULSE 63; RESP 16; TEMP 36.1; O2SAT 100
== END 2024-11-09 12:49 | disposition home or self-care (01) ==
PROVIDERS: Visit Provider Surgery
PROC: (CPT 21552; principal; 2024-11-09 10:20)
DX: D17.0 Benign lipomatous neoplasm of skin and subcutaneous tissue of head, face and neck (principal); M54.2 Cervicalgia; I10 Essential (primary) hypertension; M06.9 Rheumatoid arthritis, unspecified; G47.33 Obstructive sleep apnea (adult) (pediatric); Z79.899 Other long term (current) drug therapy; Z98.890 Other specified postprocedural states
CPT/HCPCS: 21552; 88304; J0131; J0690; J1100; J2003; J2250; J2405; J2704; J2795; J3010

== ENCOUNTER → 2024-11-09 08:01 | Outpatient (BNV) | payer MEDICARE, MEDICAID, SELFPAY | PROVIDERS: Visit Provider Surgery | DX: D17.0 Benign lipomatous neoplasm of skin and subcutaneous tissue of head, face and neck (principal) | CPT/HCPCS: 21552 ==

== ENCOUNTER 2024-11-20 10:28 | Outpatient (AMB) | payer MEDICARE, MEDICAID, SELFPAY ==
--- NOTE | 2024-11-20 10:38 | A.OFFVIS_ITS ---
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 Not experiencing pain. No longer requiring narcotics. Denies fever, chills, discharge from incision site. Denies redness or swelling of the area. [facility] Medical History Sacroiliac dysfunction Rheumatoid arthritis GERD (gastroesophageal reflux disease) HTN (hypertension) Sleep apnea Surgical History Status post excision of lipoma (11/09/24) History of eyelid surgery History of esophagogastroduodenoscopy (EGD) History of bladder surgery (02/25/20) Hx of colonoscopy Family History Father No problems noted. Mother Enlarged heart Myocardial infarction Heart problem Maternal Grandmother Breast cancer Social History (Updated 11/20/24 @ 10:50 by Lizzeth Gonzalez CMA) Household Members: Spouse, Children and Other Household Members Other:: child, grandchildren Housing: House Do you presently have visiting nurse or other home services: No Alcohol intake: current Alcohol intake frequency: does not drink Patient Tobacco Use Status: Never used Tobacco e-Cigarette/Vaping Use: Never Used Second Hand Smoke Exposure: No service: No Current occupational status: retired Cognitive needs: No Hearing needs: No Vision needs: No Review of Systems Const All systems reviewed & are unremarkable except as noted in HPI and below Physical Exam Vital Signs: Last Vital Signs Pulse 76 11/20/24 10:40 BP 151/73 H 11/20/24 10:40 Pulse Ox 98 11/20/24 10:40 BMI result Body Mass Index 24.8 Const General: comfortable and no acute distress Orientation/consciousness: patient oriented x3 Resp Effort & Inspection: normal respiratory effort and able to speak in complete sentences Skin Other: Posterior neck incision site clean dry and intact appears to be healing well, no surrounding erythema no palpable fluid collection nontender Neuro General: patient oriented x3 Assessment & Plan Assessment & Plan (1) Lipoma of back: Code(s): D17.1 - Benign lipomatous neoplasm of skin and subcutaneous tissue of trunk Category: Medical Plan 73-year-old female s/p lipoma excision on the posterior neck on 11/09/24 presents to the office for 2 week follow-up. Patient is doing well has no concerns at this time, not experiencing pain. Incision site appears clean dry and intact, healing well, no concern for infection at this time. Surgical pathology is as followed mature adipose tissue consistent with lipoma. Steri-Strips removed in office, patient tolerated well. Patient can follow up as needed for future concerns, no longer requiring routine follow up. Coding Level of Care Code Global (83265) Diagnoses Lipoma of back D17.1
[2024-11-20 10:40] VITALS: BP 151/73; PULSE 76; O2SAT 98; BMI 24.8
== END 2024-11-20 10:57 | disposition home or self-care (01) ==
LOC: HO.HGS 10:29
DX: D17.1 Benign lipomatous neoplasm of skin and subcutaneous tissue of trunk (principal)
CPT/HCPCS: 99024

== ENCOUNTER → 2024-11-20 10:28 | Outpatient (BNVA) | payer MEDICARE, MEDICAID, SELFPAY | DX: D17.1 Benign lipomatous neoplasm of skin and subcutaneous tissue of trunk (principal) | CPT/HCPCS: 99212 ==

== ENCOUNTER 2024-12-09 10:37 | Outpatient (AMB) | payer MEDICARE, MEDICAID, SELFPAY ==
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
[2024-12-09 10:46] VITALS: BP 130/58; PULSE 75; O2SAT 95; BMI 25.1
== END 2024-12-09 11:41 | disposition home or self-care (01) ==
LOC: HO.ENCR 10:38
PROVIDERS: Visit Provider Internal Medicine Endocrinology, Diabetes & Metabolism
DX: M81.0 Age-related osteoporosis without current pathological fracture (principal)
CPT/HCPCS: 99204

== ENCOUNTER → 2024-12-09 10:37 | Outpatient (BNVA) | payer MEDICARE, MEDICAID, SELFPAY | PROVIDERS: Visit Provider Internal Medicine Endocrinology, Diabetes & Metabolism | DX: M81.0 Age-related osteoporosis without current pathological fracture (principal) | CPT/HCPCS: 99202 ==

== ENCOUNTER 2025-02-02 10:00 | Outpatient (REF) | payer MEDICARE, MEDICAID, SELFPAY | END 2025-02-02 10:01 | disposition home or self-care (01) | LOC: HO.LNP 10:00 | DX: N39.0 Urinary tract infection, site not specified (principal); I10 Essential (primary) hypertension; M81.0 Age-related osteoporosis without current pathological fracture; E88.2 Lipomatosis, not elsewhere classified; K21.9 Gastro-esophageal reflux disease without esophagitis; R21 Rash and other nonspecific skin eruption; Z79.899 Other long term (current) drug therapy | CPT/HCPCS: 81002; 87086; 99212 ==

== ENCOUNTER 2025-02-02 10:00 | Outpatient (AMB) | payer MEDICARE, MEDICAID, SELFPAY ==
[2025-02-02 10:06] VITALS: BP 132/62; PULSE 66; O2SAT 98; BMI 25.5
--- NOTE | 2025-02-02 10:06 | A.OFFPC_ITS ---
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 Accompanied by: Self / Same As Patient Allergies No Known Allergies (No Known Allergies*) Allergy (Verified 02/02/25 10:07) Medication List - Last Reconciled 02/02/25 by Lyndsey Arguello PA-C amlodipine 10 mg PO DAILY ascorbate calcium (vitamin C) 500 mg PO DAILY certolizumab pegol mg subcut cholecalciferol (vitamin D3) 25 mcg PO DAILY diclofenac sodium 75 mg PO BID gabapentin 100 mg PO DAILY tramadol 50 mg PO BID PRN Tobacco use date assessed: 02/02/25 Fall risk assessment: No Falls in past year Last assessed Fall Risk: 02/02/25 Dental Screening Dental Screen Date: 09/08/24 Did you have a dental visit in the last 12 months?: No Did you have a dental problem in the last 6 months where you did not have access to dental care?: No Was dental information given to patient?: No HPI f/u blood work 2 HPI0 Details 74-year-old female with past medical his tory of GERD, rheumatoid arthritis, hypertension, sleep apnea and varicose veins in bilateral lower extremities last seen 09/25 coming in for follow up. In review of the notes, patient was seen by endocrinology 12/2024 for osteoporosis advised to maintain calcium intake of 1200 mg and continue with vitamin-D supplementation and complete secondary workup. She was seen by General surgery 11/2024 s/p lipoma excision doing well and follow up as needed. Presenting with rash, and urinary frequency. Patient tells us today she hit her right forearm on a desk last night and now has some surrounding erythema that is nontender. She reports frequent nighttime urination and does endorse drinking fluid before bedtime. Urinalysis is plan to rule out infection. [facility] Medical History Sacroiliac dysfunction Rheumatoid arthritis GERD (gastroesophageal reflux disease) HTN (hypertension) Sleep apnea Surgical History Status post excision of lipoma (11/09/24) History of eyelid surgery History of esophagogastroduodenoscopy (EGD) History of bladder surgery (02/25/20) Hx of colonoscopy Family History Father No problems noted. Mother Enlarged heart Myocardial infarction Heart problem Maternal Grandmother Breast cancer Social History Household Members: Spouse, Children and Other Household Members Other:: child, grandchildren Housing: House Do you presently have visiting nurse or other home services: No Alcohol intake: current Alcohol intake frequency: does not drink Patient Tobacco Use Status: Never used Tobacco e-Cigarette/Vaping Use: Never Used Second Hand Smoke Exposure: No service: No Current occupational status: retired Cognitive needs: No Hearing needs: No Vision needs: No Questionnaire PHQ-9 Over the last 2 weeks, how often have you been bothered by any of the following problems? 1. Little interest or pleasure in doing things: not at all 2. Feeling down, depressed, or hopeless: not at all 3. Trouble falling or staying asleep, or sleeping too much: not at all 4. Feeling tired or having little energy: not at all 5. Poor appetite or overeating: not at all 6. Feeling bad about yourself - or that you are a failure or have let yourself or your family down: not at all 7. Trouble concentrating on things, such as reading the newspaper or watching television: not at all 8. Moving or speaking so slowly that other people could have noticed. Or the opposite - being so fidgety or restless that you have been moving around a lot more than usual: not at all 9. Thoughts that you would be better off or of hurting yourself in some way: not at all Total score: 0 Depression Screening Interpretation: Negative Depression Screening Done: Yes Source: Developed by Drs. Pedro Vera, Kika Martell, Pranav Rascon and colleagues, with an educational dean from [employer]. Thrive Questionnaire Date Thrive assessed: 09/08/24 I am a: Patient What is your living situation today?: I have a steady place to live Within the past 12 months, did the food you bought not last and you didn't have the money to get more?: Never true Within the past 12 months, did you worry whether your food would run out before you got money to buy more?: Never true Do you have trouble paying for medicines?: No Do you have trouble getting transportation to medical appointments?: No Do you have trouble paying your heating and electricity bill?: No Do you have trouble taking care of your child, family member or friend?: No Do you have trouble with day-to-day activities such as bathing, preparing meals, shopping, managing finances, etc.?: No Are you currently unemployed and looking for a job?: No Are you interested in more education?: No Please select the resources that you would like help with: None Currently or been in a relationship where the following occur: No concerns reported THRIVE Score: 0 AUDIT C Alcohol Use Questionnaire (AUDIT-C) 1. How often do you have a drink containing alcohol?: Never Total Score: 0 CARLOS-7 AMB Questionnaire CARLOS-7 Date CARLOS - 7 assessed: 09/08/24 Feeling nervous, anxious, or on edge: 0 = Not at all Not being able to stop or control worryin = Not at all Worrying too much about different things: 0 = Not at all Trouble relaxin = Not at all Being so restless that it is hard to sit still: 0 = Not at all Becoming easily annoyed or irritable: 0 = Not at all Feeling afraid as if something awful might happen: 0 = Not at all Total CARLOS-7 score (0-4 normal; 5-9 mild; 10-14 moderate; 15-21 severe): 0 Source: Developed by Drs. Pedro Vera, Kika Martell, Pranav Rascon and colleagues, with an educational dean from [employer]. Review of Systems Const Denies chills, Denies fever(s), Denies headache(s) and Denies poor appetite Eyes Reports no additional complaints ENT Denies dysphagia, Denies dizziness, Denies headache(s) and Denies odynophagia Card Denies chest pain, Denies edema, Denies irregular heart rhythm, Denies lightheadedness and Denies dyspnea Resp Denies dyspnea GI Denies dysphagia, Denies diarrhea, Denies nausea, Denies odynophagia and Denies vomiting Details: frequent nighttime urination Musc Reports no additional complaints and Denies abnormal gait Skin/Breast Reports system reviewed and no additional complaints, except as documented Neuro Denies abnormal gait, Denies dizziness and Denies headache(s) Psych Reports no additional complaints Physical exam (Primary Care) Vital Signs: Last Vital Signs Pulse 66 02/02/25 10:06 BP 132/62 02/02/25 10:06 Pulse Ox 98 02/02/25 10:06 Oxygen Delivery Method Room Air 02/02/25 10:06 BMI result Body Mass Index 25.5 Tobacco/Smoking Status: Tobacco use Status Tobacco use date assessed 02/02/25 02/02/25 10:11 Patient Tobacco Use Status Never used Tobacco 02/02/25 10:11 e-Cigarette/Vaping Use Never Used 02/02/25 10:11 PHQ-9: PHQ-9 Score PHQ-9: Total score 0 02/02/25 11:18 Depression Screening Interpretation: Negative Thrive Assessment: Date of Thrive Assessment Date Thrive assessed 09/08/24 02/02/25 10:11 Currently or been in a relationship where the following occur: No concerns reported Const General: cooperative, healthy appearing, comfortable and no acute distress Orientation/consciousness: patient oriented x3 HENMT Head: Yes normocephalic Ears: hearing grossly normal bilaterally General nose exam: Normal external nose present Eyes General: appearance normal, both eyes and all related structures Conjunctivae: conjunctivae normal Neck Neck: Yes full ROM and Yes no lymphadenopathy Resp Effort & Inspection: normal respiratory effort Auscultation: clear to auscultation bilaterally, no crackles, no rales, no rhonchi and no wheezes Cardio Rate: regular rate Rhythm: regular rhythm GI Palpation (GI): Soft to palpation, not firm, nontender, no guarding, not rigid and No Rebound tenderness present General: Yes no CVA tenderness Back/Spine/Pelvis Back: no CVA tenderness Skin General skin exam: no rashes or lesions noted Full body images: 2 1. small area of erythema with scabbing at the center Neuro General: patient oriented x3 Gait exam (Neuro): Normal gait present Extrem General: Yes normal to inspection, Yes full ROM and No edema Psych Affect: normal affect Attitude: cooperative Insight: Good insight present (Psych) Judgement: Good judgement present (Psych) Results AMB Urinalysis Dipstick 2 UR Leukocytes Large Last Edit by Blas Lobo MA on 02/02/25 11:23 UR Nitrite Negative Last Edit by Blas Lobo MA on 02/02/25 11:23 UR Urobilinogen Last Edit by Blas Lobo MA on 02/02/25 11:23 0.2 Blas Lobo 02/02/25 11:23 UR Protein Last Edit by Blas Lobo MA on 02/02/25 11:23 15 Blas Lobo 02/02/25 11:23 UR Ph 6.0 Last Edit by Blas Lobo MA on 02/02/25 11:23 UR Blood Last Edit by Blas Lobo MA on 02/02/25 11:23 10 Blas Lobo 02/02/25 11:23 UR Specific [place] 1.015 Last Edit by Blas Lobo MA on 02/02/25 11:2 3 UR Ketone Negative Last Edit by Blas Lobo MA on 02/02/25 11:23 UR Bilirubin Negative Last Edit by Blas Lobo MA on 02/02/25 11:23 UR Glucose Negative Last Edit by Blas Lobo MA on 02/02/25 11:23 Results Reviewed Results Reviewed: Laboratory Last Values Urine pH (Clinic) 6.0 02/02/25 11:03 Specific [place] (Clinic) 1.015 02/02/25 11:03 Ur Protein (Clinic) 02/02/25 11:03 Ur Ketones (Clinic) Negative 02/02/25 11:03 Urine Blood (Clinic) 02/02/25 11:03 Urine Nitrite Negative 02/02/25 11:03 Urine Bilirubin (Clinic) Negative 02/02/25 11:03 Urobilinogen (Clinic) 02/02/25 11:03 Leukocyte Esterase (Clinic) Large A* 02/02/25 11:03 Urine Glucose (Clinic) Negative 02/02/25 11:03 Coding Level of Care Code Est Pt Level 3 (79712) Diagnoses Hypertension, unspecified type I10 Hypertension type: unspecified Osteoporosis M81.0 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 Avoid salt intake and encourage healthy diet and regular exercise. (2) Osteoporosis: Code(s): M81.0 - Age-related osteoporosis without current pathological fracture Category: Medical Plan: Continue with calcium 1200 mg per day and vitamin D3. Continue to follow up with endocrinology and undergoing secondary workup at this time. 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 (4) GERD (gastroesophageal reflux disease): Code(s): K21.9 - Gastro-esophageal reflux disease without esophagitis Category: Medical Plan: Avoid trigger foods such as citrus, tomato products, soda, caffeine, spicy foods and other foods that may be irritating to your stomach. Avoid laying flat 3-4 hours after eating and elevate the head of the bed 30 degrees to prevent acid from moving into the esophagus. (5) Rash: Code(s): R21 - Rash and other nonspecific skin eruption Category: Medical Plan: Patient having a rash on the dorsal aspect of the right forearm with surrounding erythema. Low concern for infection at this time advised patient to continue to watch it and reviewed red flag symptoms and when to present for re-evaluation. She is being seen by Dermatology for a rash on the legs and given betamethasone cream in his looking for a refill which was sent today. (6) UTI (urinary tract infection): Code(s): N39.0 - Urinary tract infection, site not specified Category: Medical Plan: Patient's urinalysis suspicious for UTI as it does of the presence of leukocytes. Plan to treat with Macrobid twice daily for 5 days advised to take with food and water. Plan to await culture further guidance of antibiotic treatment. Plan During the visit, we discussed the patient's knee pain and the need for orthopedic follow-up. We also addressed the rash and the need for a cream refill. The patient was advised on dietary modifications for acid reflux and reducing fluid intake to manage urinary frequency. A urinalysis was planned to rule out infection, and vitamin D supplementation was prescribed. This note was constructed using voice recognition software. While every effort has been made to ensure accuracy and activated sludge operator, still areas may have been included sometimes these areas may affect the content or meeting of the given symptoms. Total time spent caring for the patient today was 20 minutes. This includes time spent before the visit reviewing the chart, time spent during the visit, and time spent after the visit and documentation. Patient was informed and verbally consented to the use of an ambient scribe for clinic note documentation during this visit. Orders: Orders 2 Complete Blood Count Auto Diff Today I10 - Essential (primary) hypertension, Z00.00 - Encounter for general adult medical examination without abnormal findings AMB Urinalysis Dipstick Today Z13.9 - Encounter for screening, unspecified Urine Culture Today N39.0 - Urinary tract infection, site not specified Medications: New 2 betamethasone dipropionate 0.05% 1 appl topical DAILY PRN 15 grams 0RF skin irritation betamethasone dipropionate 0.05% 1 appl topical DAILY PRN 15 grams 0RF skin irritation I10 - Essential (primary) hypertension nitrofurantoin monohyd/m-cryst 100 mg must administer with a meal/food 100 mg PO Q12H 5 days 10 caps 0RF I10 - Essential (primary) hypertension nitrofurantoin monohyd/m-cryst 100 mg must administer with a meal/food 100 mg PO Q12H 10 caps 0RF 5 days I10 - Essential (primary) hypertension
== END 2025-02-02 11:04 | disposition home or self-care (01) ==
LOC: HO.HMCH 10:01
DX: I10 Essential (primary) hypertension (principal); M81.0 Age-related osteoporosis without current pathological fracture; E88.2 Lipomatosis, not elsewhere classified; K21.9 Gastro-esophageal reflux disease without esophagitis; R21 Rash and other nonspecific skin eruption; N39.0 Urinary tract infection, site not specified; Z13.9 Encounter for screening, unspecified

== ENCOUNTER 2025-02-18 11:14 | Outpatient (REF) | payer MEDICARE, MEDICAID, SELFPAY ==
[2025-02-18 12:36] LABS: Creatinine, mg/dL 24.65
[2025-02-18 13:27] LABS: Total Volume 24 Hour Urine 2550 mL
[2025-02-19 19:03] LABS: Calcium/Creatinine Ratio 254 mg/g creat (30-275); Creatinine 24Hr Urine 0.71 g/24 h (0.50-2.15)
== END 2025-02-18 11:15 | disposition home or self-care (01) ==
LOC: HO.LNP 11:14
PROVIDERS: Visit Provider Internal Medicine Endocrinology, Diabetes & Metabolism
DX: M81.0 Age-related osteoporosis without current pathological fracture (principal)
CPT/HCPCS: 82340; 82570

== ENCOUNTER 2025-04-05 13:55 | Outpatient (REF) | payer MEDICARE, MEDICAID, SELFPAY | END 2025-04-05 13:56 | disposition home or self-care (01) | LOC: HO.LNP 13:55 | PROVIDERS: Visit Provider Internal Medicine Endocrinology, Diabetes & Metabolism | DX: M81.0 Age-related osteoporosis without current pathological fracture (principal) | CPT/HCPCS: 86335 ==

== ENCOUNTER 2025-04-14 10:02 | Outpatient (AMB) | payer MEDICARE, MEDICAID, SELFPAY ==
[2025-04-14 10:04] VITALS: BP 134/66; PULSE 79; O2SAT 98; BMI 26.1
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
== END 2025-04-14 10:16 | disposition home or self-care (01) ==
LOC: HO.ENCR 10:03
PROVIDERS: Visit Provider Internal Medicine Endocrinology, Diabetes & Metabolism
DX: M81.0 Age-related osteoporosis without current pathological fracture (principal)
CPT/HCPCS: 99213

== ENCOUNTER 2025-04-14 10:32 | Outpatient (REF) | payer MEDICARE, MEDICAID, SELFPAY ==
[2025-04-14 13:38] LABS: MANUAL DIFF FLAG NO
[2025-04-14 13:46] LABS: Hematocrit 40.6 % (37.0-47.0); Hemoglobin 13.0 g/dl (12.0-16.0); Imm Gran Abs Auto 0.02 X10*3/uL (0.00-0.03); Imm Gran Pct Auto 0.2 % (0.0-0.4); Lymphocytes Absolute Auto 2.6 X10*3/uL (1.2-4.9); Mean Corpuscular HGB Conc 32.0 g/dl (31.0-35.0); Mean Corpuscular Hemoglobin 29.5 pg (27.0-33.0); Mean Corpuscular Volume 92.1 fL (80.0-98.0); NRBC Abs Auto 0.000 X10*3/uL (0.0-0.012); NRBC Pct Auto 0.0 /100WBC (0.0-0.2); Platelet Count 300 X10*3/uL (160-400); Red Blood Count 4.41 X10*6/uL (4.20-5.50); White Blood Count 8.8 X10*3/uL (4.8-10.8)
== END 2025-04-14 10:33 | disposition home or self-care (01) ==
LOC: HO.10HDL 10:32
PROVIDERS: Visit Provider Internal Medicine Endocrinology, Diabetes & Metabolism
DX: Z00.00 Encounter for general adult medical examination without abnormal findings (principal); I10 Essential (primary) hypertension; M81.0 Age-related osteoporosis without current pathological fracture; N39.0 Urinary tract infection, site not specified
CPT/HCPCS: 36415; 82306; 84100; 85025; 87086; 87147; 99212

== ENCOUNTER 2025-05-06 09:56 | Outpatient (AMB) | payer MEDICARE, MEDICAID, SELFPAY ==
--- NOTE | 2025-05-06 09:59 | MHC.OFFVIS ---
Vital Signs 05/06/25 10:00 Height 5 ft Weight 131 lb BMI 25.6 BP 139/65 Blood Pressure Location Rt brachial Position Sitting Pulse 66 Intake Visit Reasons: colo screen Intake Note: New patient in office today for colonoscopy screening. CC: Pt states that last week she saw blood in stool after BM. Denies other GI concerns today. Bead Inspector Required: No Accompanied by: Self / Same As Patient Allergies No Known Allergies (No Known Allergies*) Allergy (Verified 05/06/25 10:05) HPI HPI colo screen: Details: 74-year-old female here for preprocedural meeting to discuss a screening colonoscopy. She is referred by Lyndsey Arguello. PMX LARISSA - but uncontrolled because her insurance will not cover sleep study Hypertension Rheumatoid arthritis Varicose veins Gallstones Sacroiliac dysfunction GERD * SURGICAL HISTORY Lipoma excision Eyelid surgery Esophagogastroduodenoscopy-2017 Adolfo Bladder surgery Colonoscopy-2017 Don * ALLERGIES: NKDA * [facility] LABS: Laboratory Tests 09/16/24 04/14/25 10:00 10:36 WBC 8.8 Hgb 13.0 Hct 40.6 Plt Count 300 Estimated GFR > 60 Total Bilirubin 0.6 AST 24 ALT 18 Alkaline Phosphatase 100 TSH 2.01 TODAY'S VISIT First colonoscopy: No had in 2017 with very small ? polyp not retrieved Bowel or upper GI problems: GERD well controlled adn intermittent uses natural remedies and CIC tx with diet. Anesthesia or sedation problems: No Cardiac or respiratory problems: Has LARISSA - but uncontrolled because her insurance will not cover sleep study Infectious disease problems: No Family history of colon cancer or polyps: No PFSH Medical History (Updated 05/06/25 @ 10:21 by CARLIE Rueda) UTI (urinary tract infection) Screening for breast cancer Varicose veins of right lower extremity with inflammation Physical exam Encounter for annual wellness exam in Medicare patient Sacroiliac dysfunction Rheumatoid arthritis GERD (gastroesophageal reflux disease) HTN (hypertension) Sleep apnea Surgical History Status post excision of lipoma (11/09/24) History of eyelid surgery History of esophagogastroduodenoscopy (EGD) History of bladder surgery (02/25/20) Hx of colonoscopy Family History Father No problems noted. Mother Enlarged heart Myocardial infarction Heart problem Maternal Grandmother Breast cancer Social History Household Members: Spouse, Children and Other Household Members Other:: child, grandchildren Housing: House Do you presently have visiting nurse or other home services: No Alcohol intake: current Alcohol intake frequency: does not drink Patient Tobacco Use Status: Never used Tobacco e-Cigarette/Vaping Use: Never Used Second Hand Smoke Exposure: No service: No Current occupational status: retired Cognitive needs: No Hearing needs: No Vision needs: No Review of Systems Const Denies fatigue, Denies fever(s), Denies night sweats, Denies poor appetite and Denies weight loss ENT Reports Normal hearing present, Denies dental pain, Denies dysphagia, Denies hearing loss, Denies mouth pain, Denies odynophagia, Denies throat swelling, Denies tongue swelling and Reports other (Dentition adequate) Card Reports no additional complaints Resp Reports no additional complaints GI Details: Denies abdominal pain, Denies melena, Denies bloating, Denies hematochezia, Reports constipation, Denies GI cramping, Denies dysphagia, Denies excessive flatus, Denies early satiety, Reports heartburn, Denies diarrhea, Denies nausea, Denies odynophagia, Denies vomiting and Denies hematemesis Musc Reports back pain, Reports myalgias, Reports arthralgias, Reports limited range of motion and Reports stiffness Skin/Breast Denies pruritus, Denies lesions, Denies rash and Denies jaundice Neuro Reports Normal hearing present and Denies Abnormal speech present Endo Denies fatigue Aller/Immun Denies throat swelling and Denies tongue swelling Physical Exam Vital Signs: Last Vital Signs Pulse 66 05/06/25 10:00 BP 139/65 05/06/25 10:00 BMI result Body Mass Index 25.6 Const General: cooperative, no acute distress, well developed and well groomed Nutritional Appearance: well nourished and overweight Orientation/consciousness: oriented to person, oriented to place and oriented to time Limitations: No language barrier HEENT Head: Yes normocephalic and Yes atraumatic Eyes General: appearance normal, both eyes and all related structures Pupils: Equal, round and reactive pupils present Neck Neck: Yes normal visual inspection and Yes no lymphadenopathy Thyroid: Thyroid normal Resp Effort & Inspection: normal respiratory effort and able to speak in complete sentences Auscultation: clear to auscultation bilaterally Cardio Rate: regular rate Rhythm: regular rhythm Heart sounds: Normal, physiologic split S2 sound present Peripheral pulses: radial pulses present and posterior tibial pulses present GI Inspection: No distended and No Abdominal panniculus present Palpation (GI): Soft to palpation, nontender, no guarding, not rigid and No hepatosplenomegaly present Percussion: Yes normal to percussion Auscultation: normal bowel sounds Rectal Exam - Female: deferred Skin General skin exam: no rashes or lesions noted, turgor normal, skin not dry, no jaundice, No spider nevi and no striae Rashes: no rashes Nails: normal Neuro General: oriented to person, oriented to place and oriented to time Cranial nerves: Yes Equal, round and reactive pupils present and Yes Normal hearing present Speech: No Abnormal speech present Extrem General: Yes normal to inspection, No clubbing, No cyanosis and No edema Psych Appearance: grossly normal and well kempt Mental Status: mental status grossly normal Speech and movement: Normal speech and movement present Affect: normal affect Attitude: cooperative Thought process: Normal thought process present and not confabulating Thought content: Normal thought content present Insight: Good insight present (Psych) Judgement: Good judgement present (Psych) Assessment & Plan Assessment & Plan (1) Sleep apnea: Comment: mild - does not use CPAP Code(s): G47.30 - Sleep apnea, unspecified Category: Medical (2) Pre-op examination: Code(s): Z01.818 - Encounter for other preprocedural examination Category: Medical Plan First colonoscopy: No had in 2017 with very small ? polyp not retrieved Bowel or upper GI problems: GERD well controlled adn intermittent uses natural remedies and CIC tx with diet. Anesthesia or sedation problems: No Cardiac or respiratory problems: Has LARISSA - but uncontrolled because her insurance will not cover sleep study (there some question that this may be more related to a septal perforation) Infectious disease problems: No Family history of colon cancer or polyps: No Orders: Referrals GI Procedure Notification Z01.818 - Encounter for other preprocedural examination Medications: New bisacodyl (Dulcolax (bisacodyl)) 10 mg (2 x 5 mg) PO BEDTIME 4 tabs 0RF 2 days peg 3350-electrolytes 236-22.74-6.74 -5.86 gram (Golytely) until fecal effluent is clear; do not exceed a total volume of 2,000 mL 240 mL PO Q10M 4,000 mL 0RF 1 day Z12.11 - Encounter for screening for malignant neoplasm of colon Coding Level of Care Code New Pt Level 3 (39913) Diagnoses Sleep apnea G47.30 Pre-op examination Z01.818
[2025-05-06 10:00] VITALS: BP 139/65; PULSE 66; BMI 25.6
== END 2025-05-06 10:37 | disposition home or self-care (01) ==
LOC: HO.HGI 09:56
PROVIDERS: Visit Provider Nurse Practitioner
DX: Z01.818 Encounter for other preprocedural examination (principal); Z12.11 Encounter for screening for malignant neoplasm of colon; G47.30 Sleep apnea, unspecified
CPT/HCPCS: 99024

== ENCOUNTER → 2025-05-06 09:56 | Outpatient (BNVA) | payer MEDICARE, MEDICAID, SELFPAY | PROVIDERS: Visit Provider Nurse Practitioner | DX: Z01.818 Encounter for other preprocedural examination (principal); Z12.11 Encounter for screening for malignant neoplasm of colon; G47.30 Sleep apnea, unspecified | CPT/HCPCS: 99212 ==

== ENCOUNTER 2025-05-10 10:58 | Outpatient (AMB) | payer MEDICARE, MEDICAID, SELFPAY ==
--- NOTE | 2025-05-10 11:01 | MHC.PC.OV ---
Vital Signs 05/10/25 11:02 Height 5 ft Weight 130 lb 8 oz BMI 25.5 BP 130/70 Blood Pressure Location Lt brachial Position Sitting Pulse 79 Pulse Source Pulse Oximeter Temp 96.9 F Temp Source Temporal Artery Scan Pulse Oximetry (%) 99 Oxygen Delivery Method Room Air Intake Visit Reasons: annual exam Intake Note: Patient is here today for a physical. Java User Interface Developer Required: No Partition Notcher: Not Required per policy Accompanied by: Self / Same As Patient Allergies No Known Allergies (No Known Allergies*) Allergy (Verified 05/10/25 11:10) Medication List - Last Reconciled 05/10/25 by Lyndsey Arguello PA-C amlodipine 10 mg PO DAILY ascorbate calcium (vitamin C) 500 mg PO DAILY betamethasone dipropionate 0.05% 1 appl topical DAILY PRN bisacodyl (Dulcolax (bisacodyl)) 10 mg (2 x 5 mg) PO BEDTIME 2 days certolizumab pegol 400 mg subcut Q2W cholecalciferol (vitamin D3) 25 mcg PO DAILY diclofenac sodium 75 mg PO BID gabapentin 100 mg PO DAILY peg 3350-electrolytes 236-22.74-6.74 -5.86 gram (Golytely) 240 mL PO Q10M 1 day tramadol 50 mg PO BID PRN Tobacco use date assessed: 05/10/25 Fall risk assessment: No Falls in past year Last assessed Fall Risk: 05/10/25 Dental Screening Dental Screen Date: 09/08/24 [facility] annual exam HPI Details 74-year-old female with past medical history of GERD, rheumatoid arthritis, hypertension, sleep apnea and varicose veins in bilateral lower extremities last seen 02/2025 coming in for annual exam. In review of the notes, patient was seen by Gastroenterology 05/2025 plan for colonoscopy. Seen by endocrinology 04/2025 for osteoporosis with negative secondary workup consideration for medication to be made. Presenting with burning leg pain, insomnia, and epigastric discomfort. The patient reports long-standing burning pain in her legs, for which she takes a low dose of gabapentin. She complains of difficulty sleeping, which is sometimes due to pain, occurring one or two times per week. She describes a long-standing pain under her ribs, which she also characterizes as a pressure sensation and has been present for a long time. The patient reports intermittent dysphagia, a choking sensation, and food getting stuck, which has happened every couple of months. Colonoscopy: Scheduling by GI DEXA: 11/2024 Mammogram: 11/2024 Vaccinations: flu given today [facility] Medical History UTI (urinary tract infection) Screening for breast cancer Varicose veins of right lower extremity with inflammation Physical exam Encounter for annual wellness exam in Medicare patient Sacroiliac dysfunction Rheumatoid arthritis GERD (gastroesophageal reflux disease) HTN (hypertension) Sleep apnea Surgical History Lipomatosis gigantea Status post excision of lipoma (11/09/24) History of eyelid surgery History of esophagogastroduodenoscopy (EGD) History of bladder surgery (02/25/20) Hx of colonoscopy Family History Father No problems noted. Mother Enlarged heart Myocardial infarction Heart problem Maternal Grandmother Breast cancer Social History Household Members: Spouse, Children and Other Household Members Other:: child, grandchildren Housing: House Do you presently have visiting nurse or other home services: No Alcohol intake: current Alcohol intake frequency: does not drink Patient Tobacco Use Status: Never used Tobacco e-Cigarette/Vaping Use: Never Used Second Hand Smoke Exposure: No service: No Current occupational status: retired Cognitive needs: No Hearing needs: No Vision needs: No Questionnaire PHQ-9 Over the last 2 weeks, how often have you been bothered by any of the following problems? 1. Little interest or pleasure in doing things: nearly every day 2. Feeling down, depressed, or hopeless: nearly every day 3. Trouble falling or staying asleep, or sleeping too much: nearly every day 4. Feeling tired or having little energy: more than half the days 5. Poor appetite or overeating: not at all 6. Feeling bad about yourself - or that you are a failure or have let yourself or your family down: not at all 7. Trouble concentrating on things, such as reading the newspaper or watching television: not at all 8. Moving or speaking so slowly that other people could have noticed. Or the opposite - being so fidgety or restless that you have been moving around a lot more than usual: not at all 9. Thoughts that you would be better off or of hurting yourself in some way: not at all Total score: 11 Depression Screening Interpretation: Positive Depression Screening Done: Yes Source: Developed by Drs. Pedro Vera, Kika Martell, Pranav Rascon and colleagues, with an educational dean from [employer]. Thrive Questionnaire Date Thrive assessed: 09/08/24 I am a: Patient What is your living situation today?: I choose not to answer this question Within the past 12 months, did the food you bought not last and you didn't have the money to get more?: I choose not to answer this question Within the past 12 months, did you worry whether your food would run out before you got money to buy more?: I choose not to answer this question Do you have trouble paying for medicines?: No Do you have trouble getting transportation to medical appointments?: No Do you have trouble paying your heating and electricity bill?: No Do you have trouble taking care of your child, family member or friend?: No Do you have trouble with day-to-day activities such as bathing, preparing meals, shopping, managing finances, etc.?: No Are you currently unemployed and looking for a job?: No Are you interested in more education?: I choose not to answer this question Please select the resources that you would like help with: None Currently or been in a relationship where the following occur: I choose not to answer THRIVE Score: 0 AUDIT C Alcohol Use Questionnaire (AUDIT-C) 1. How often do you have a drink containing alcohol?: Never Total Score: 0 CARLOS-7 AMB Questionnaire CARLOS-7 Date CARLOS - 7 assessed: 05/10/25 Feeling nervous, anxious, or on edge: 2 = More than half the days Not being able to stop or control worryin = More than half the days Worrying too much about different things: 2 = More than half the days Trouble relaxin = Nearly every day Being so restless that it is hard to sit still: 0 = Not at all Becoming easily annoyed or irritable: 0 = Not at all Feeling afraid as if something awful might happen: 0 = Not at all Total CARLOS-7 score (0-4 normal; 5-9 mild; 10-14 moderate; 15-21 severe): 9 Source: Developed by Drs. Pedro Vera, Kika Martell, Pranav Rascon and colleagues, with an educational edan from [employer]. Review of Systems Const Denies body aches, Denies fatigue, Denies fever(s), Denies frequent falls, Denies headache(s) and Denies weakness Eyes Reports no additional complaints and Denies change in vision ENT Reports dysphagia (once monthly ), Denies dizziness, Denies facial pain, Denies headache(s), Denies nasal congestion and Denies odynophagia Card Denies chest pain, Denies syncope, Denies irregular heart rhythm, Denies leg edema, Denies lightheadedness and Denies dyspnea Resp Denies cough and Denies dyspnea GI Reports abdominal pain, Denies constipation, Reports dysphagia (once monthly ), Reports dyspepsia, Reports heartburn, Denies diarrhea, Reports nausea, Denies odynophagia and Denies vomiting Denies urinary frequency, Denies dysuria, Denies urinary hesitancy and Denies urinary urgency Musc Denies back pain and Denies myalgias Skin/Breast Reports system reviewed and no additional complaints, except as documented Neuro Denies dizziness, Denies syncope, Denies frequent falls, Denies headache(s) and Denies weakness Psych Reports no additional complaints Endo Denies fatigue Physical exam (Primary Care) Vital Signs: Last Vital Signs Temp 96.9 F 05/10/25 11:02 Pulse 79 05/10/25 11:02 BP 130/70 05/10/25 11:02 Pulse Ox 99 05/10/25 11:02 Oxygen Delivery Method Room Air 05/10/25 11:02 BMI result Body Mass Index 25.5 Tobacco/Smoking Status: Tobacco use Status Tobacco use date assessed 05/10/25 05/10/25 11:07 Patient Tobacco Use Status Never used Tobacco 05/10/25 11:07 e-Cigarette/Vaping Use Never Used 05/10/25 11:07 PHQ-9: PHQ-9 Score PHQ-9: Total score 11 05/10/25 13:23 Depression Screening Interpretation: Positive Thrive Assessment: Date of Thrive Assessment Date Thrive assessed 09/08/24 05/10/25 11:07 Currently or been in a relationship where the following occur: I choose not to answer Const General: cooperative, healthy appearing, comfortable and no acute distress Orientation/consciousness: patient oriented x3 [facility] Head: Yes normocephalic Ears: hearing grossly normal bilaterally, external ears normal, TM's normal bilaterally and EAC's normal General nose exam: Normal external nose present Face and sinus: Yes normal facial exam and Yes sinuses nontender Mouth: Normal oral and palatal mucosa present and tongue normal Throat: Yes posterior oropharynx normal Eyes General: appearance normal, both eyes and all related structures Conjunctivae: conjunctivae normal Pupils: Equal, round and reactive pupils present EOM: EOMs intact bilaterally and No Nystagmus present Neck Neck: Yes normal visual inspection, Yes full ROM and Yes no lymphadenopathy Chest Chest palpation & inspection: normal inspection of the chest Resp Effort & Inspection: normal respiratory effort Auscultation: clear to auscultation bilaterally, no crackles, no rales, no rhonchi, no wheezes and breath sounds present Cardio Rate: regular rate Rhythm: regular rhythm Peripheral pulses: radial pulses present and dorsalis pedis present GI Inspection: Yes normal to inspection and No Abdominal wall edema Palpation (GI): Soft to palpation, not firm, Tenderness to palpation present (GI) in the epigastrum, no guarding, not rigid and No Rebound tenderness present Auscultation: normal bowel sounds Rectal Exam - Female: deferred General: Yes no CVA tenderness Back/Spine/Pelvis Back: no CVA tenderness Skin General skin exam: no rashes or lesions noted Neuro General: patient oriented x3 Cranial nerves: Yes Equal, round and reactive pupils present, Yes Midline tongue present, Yes Ability to bilaterally elevate shoulders present and No Nystagmus present Gait exam (Neuro): Normal gait present Extrem General: Yes normal to inspection, Yes full ROM, No no pedal edema and No edema Psych Speech and movement: Normal speech and movement present Affect: normal affect Insight: Good insight present (Psych) Judgement: Good judgement present (Psych) Office Procedures Flu Questionnaire Does the patient have a severe egg allergy?: No Does the patient have severe life threatening allergies?: No Does the patient have a fever or illness today?: No Has the patient ever had Guillain-Winfred Syndrome?: No Has the patient ever had any past reaction to a flu shot?: No Immunizations Fluarix [id number] (PF) 45 mcg (15 mcg x 3)/0.5 mL IM syringe Performing Provider: Lyndsey Arguello PA-C [facility] [place] [facility] Administered by: Maria Luisa Vincent CMA on 05/10/25 11:42 Dose Route Admin Location Dispensed Lot Number Expiration Date NDC Pediatric Audiologist 0.5 mL IM Right Deltoid 0.5 mL [id number] 11/30/25 87961-776-42 QM Scientific VIS Given Date VIS Provided VIS Publication Date 05/10/25 Single Vaccine 24 Eligibility Eligibility Date Funding Source Not [facility] Eligible 05/10/25 Private Coding Level of Care Code Est Pt Prev Care >65y(36041) Diagnoses Annual physical exam Z00.00 Hypertension, unspecified type I10 Hypertension type: unspecified Osteoporosis M81.0 GERD (gastroesophageal reflux disease) K21.9 Rheumatoid arthritis M06.9 Rheumatoid arthritis location: unspecified site Insomnia G47.00 Dysphagia R13.10 Assessment & Plan Assessment & Plan (1) Annual physical exam: Code(s): Z00.00 - Encounter for general adult medical examination without abnormal findings Category: Medical Plan: Patient is up-to-date on all recommended routine screenings and vaccinations for her age. Blood work is up-to-date and has been reviewed with the patient today. Healthy diet and regular exercise is encouraged. (2) Hypertension: Code(s): I10 - Essential (primary) hypertension Category: Medical Qualifiers: Hypertension type: unspecified Qualified Code(s): I10 - Essential (primary) hypertension Plan: Continue on current blood pressure medication. Avoid salt intake and encourage healthy diet and regular exercise. (3) Osteoporosis: Code(s): M81.0 - Age-related osteoporosis without current pathological fracture Category: Medical Plan: Continue with calcium 1200 mg per day and vitamin D3. Continue to follow up with endocrinology and undergoing secondary workup at this time. (4) GERD (gastroesophageal reflux disease): Code(s): K21.9 - Gastro-esophageal reflux disease without esophagitis Category: Medical Plan: Avoid trigger foods such as citrus, tomato products, soda, caffeine, spicy foods and other foods that may be irritating to your stomach. Avoid laying flat 3-4 hours after eating and elevate the head of the bed 30 degrees to prevent acid from moving into the esophagus. Plan to trial Omeprazole. Epigastric pain and symptoms most consistent with GERD and plan to trial omeprazole at this time. (5) Rheumatoid arthritis: Code(s): M06.9 - Rheumatoid arthritis, unspecified Category: Medical Qualifiers: Rheumatoid arthritis location: unspecified site Plan: Continue on current medication regimen and continue with arthritis treatment center. (6) Insomnia: Code(s): G47.00 - Insomnia, unspecified Category: Medical Plan: The patient reports difficulty sleeping, which impacts her energy levels. Will prescribe trazodone 50 mg to be taken as needed for sleep. Advised the patient to start with half a tablet to assess for morning somnolence, with the option to take the full tablet if needed. (7) Dysphagia: Code(s): R13.10 - Dysphagia, unspecified Category: Medical Plan: Offered workup today which was declined as her symptoms are intermittent and infrequent Plan This note was constructed using voice recognition software. While every effort has been made to ensure accuracy and epic specialist, still areas may have been included sometimes these areas may affect the content or meeting of the given symptoms. Total time spent caring for the patient today was 30 minutes. This includes time spent before the visit reviewing the chart, time spent during the visit, and time spent after the visit and documentation. Patient was informed and verbally consented to the use of an ambient scribe for clinic note documentation during this visit. Orders: Orders Comprehensive Met. Panel Today M81.0 - Age-related osteoporosis without current pathological fracture, Z00.00 - Encounter for general adult medical examination without abnormal findings TSH reflex Free T4 Today Z13.29 - Encounter for screening for other suspected endocrine disorder Vitamin B12 and Folate Today Z13.21 - Encounter for screening for nutritional disorder Lipid Panel Today Z13.220 - Encounter for screening for lipoid disorders Influenza [id number] Immunization Today Z23 - Encounter for immunization Vitamin D 25-OH Total Today Z13.21 - Encounter for screening for nutritional disorder Medications: New trazodone 50 mg PO DAILY 30 tabs 0RF pantoprazole 20 mg PO DAILY 90 tabs 0RF
[2025-05-10 11:02] VITALS: BP 130/70; PULSE 79; TEMP 36.1; O2SAT 99; BMI 25.5
== END 2025-05-10 11:51 | disposition home or self-care (01) ==
LOC: HO.HMCH 10:59
DX: Z00.00 Encounter for general adult medical examination without abnormal findings (principal); M06.9 Rheumatoid arthritis, unspecified; I10 Essential (primary) hypertension; M81.0 Age-related osteoporosis without current pathological fracture; K21.9 Gastro-esophageal reflux disease without esophagitis; G47.00 Insomnia, unspecified; R13.10 Dysphagia, unspecified; Z23 Encounter for immunization

== ENCOUNTER → 2025-05-10 10:58 | Outpatient (BNVA) | payer MEDICARE, MEDICAID, SELFPAY | DX: Z00.00 Encounter for general adult medical examination without abnormal findings (principal); K21.9 Gastro-esophageal reflux disease without esophagitis; G47.00 Insomnia, unspecified; R10.13 Epigastric pain; I10 Essential (primary) hypertension; M81.0 Age-related osteoporosis without current pathological fracture; M06.9 Rheumatoid arthritis, unspecified; R13.10 Dysphagia, unspecified; Z23 Encounter for immunization | CPT/HCPCS: 90471; 90656; 96127; 99397 ==